=== PATIENT | male | born 1970 | race Caucasian/White ===

== ENCOUNTER 2020-05-18 22:51 | Inpatient (IN) | payer OTHER, SELFPAY ==
[2020-05-18 22:59] VITALS: BP 142/104; PULSE 136; RESP 20; TEMP 39.2; O2SAT 95; BMI 35.8
[2020-05-19] VITALS (21 sets, daily range): BP systolic 119–148; BP diastolic 77–105; PULSE 80–120; RESP 18–26; TEMP 36.3–39.6; O2SAT 94–98
--- NOTE | 2020-05-19 | PC.NURSE ---
LABS DRAWN AND SENT FOR ANALYSIS. AWAITING RESULTS. 18G IV ACCESS ESTABLISHED IN LEFT FOREARM.
[2020-05-19 00:09] LABS: MANUAL DIFF FLAG NO
[2020-05-19 00:14] LABS: Eosinophils Percent Auto 0.2 % (0-4); Hematocrit 49.7 % (42-52); Hemoglobin 16.7 g/dl (14.0-18.0); Imm Gran Abs Auto 0.01 X10*3/uL (0.00-0.03); Imm Gran Pct Auto 0.2 % (0.0-0.4); Lymphocytes Absolute Auto 1.3 X10*3/uL (1.2-4.9); Lymphocytes Percent Auto 19.9 % (20-40); Mean Corpuscular HGB Conc 33.6 g/dl (31.0-36.0); Mean Corpuscular Volume 83.2 fL (80-98); Mean Platelet Volume 9.7 fL (9.4-12.4); Monocytes Absolute Auto 0.4 X10*3/uL (0.1-1.2); Monocytes Percent Auto 6.5 % (2-11); Neutrophils Absolute Auto 4.9 X10*3/uL (2.0-8.3); Neutrophils Percent Auto 73.2 % (45-73); Platelet Count 160 X10*3/uL (160-400); Red Blood Count 5.97 X10*6/uL (4.60-5.80); Red Cell Distribution Width 13.8 % (11.0-16.0); White Blood Count 6.6 X10*3/uL (4.8-10.8)
[2020-05-19 00:16] LABS: INTERNATIONAL NORM RATIO 1.1 (0.9-1.1); Prothrombin Time 12.9 SEC (10.8-13.0)
[2020-05-19 00:19] LABS: D Dimer 532 NG/ML; Partial Thromboplastin Time 27.3 SEC (24.1-38.0)
[2020-05-19 00:27] LABS: Lactic Acid 1.6 mmol/L (0.5-2.0)
[2020-05-19 00:30] LABS: Alanine Aminotransferase 61 U/L (0-40); Alkaline Phosphatase 76 U/L (39-117); Anion Gap 14 (12-20); Aspartate Amino Transferase 36 U/L (5-37); Bilirubin Total 0.5 mg/dL (0.0-1.0); Blood Urea Nitrogen 17 mg/dL (9-16); Calcium 8.7 mg/dL (8.4-10.2); Carbon Dioxide 23 mmol/L (22-29); Chloride 105 mmol/L (96-108); Creatinine Clr Calc Pharmacy 100.2; Estimated Glomerular Filt Rate > 60; Glucose Random 155 mg/dL (60-115); Lactate Dehydrogenase 257 U/L (118-273); Potassium 4.1 mmol/l (3.3-5.1); Sodium 138 mmol/L (135-145); Total Protein 7.7 g/dL (6.5-8.0)
[2020-05-19] MEDS: Acetaminophen 325 MG TABLET 650 MG PO ×2 (00:31→08:30)
[2020-05-19] MEDS: Albuterol Sulfate 90 MCG 8 GM INHALER 4 PUFF INHALE (00:31)
[2020-05-19] MEDS: guaiFEN/Codeine SF 200/20/10ML 10 ML LIQUID PO (00:31)
[2020-05-19] MEDS: 0.9 % Sodium Chloride 1,000 ML 999 ML IVCONT (00:32)
[2020-05-19 00:48] LABS: Procalcitonin 0.16 ng/mL
[2020-05-19 00:50] LABS: Ferritin 402 ng/mL (20-250)
--- NOTE | 2020-05-19 00:54 | CT_ITS ---
EXAMINATION: CT PULMONARY EMBOLISM STUDY CLINICAL INFORMATION: Elevated d-dimer. Positive Covid. Fever, shortness of breath. COMPARISON: None. TECHNIQUE: Contiguous helical images of the chest were obtained following the administration of IV contrast. Multiplanar reconstructions were performed. MIPS were obtained and reviewed. DLP: 316 mGy-cm. CONTRAST: 65 mL of Omnipaque 350 were administered without incident. Please note that evaluation for a pulmonary embolism is significantly limited due to the poor timing of the contrast bolus. FINDINGS: The heart is of normal size. There is no pericardial effusion. The contrast bolus is poorly timed. As such, evaluation for a pulmonary embolism is limited; however, none is identified. There are no chest wall masses. Review of lung windows demonstrates that there are neither pleural effusions nor pneumothoraces. There is multifocal ground glass opacification within both lower lobes as well as the inferior segment of the lingula. There are no pulmonary parenchymal nodules. Limited evaluation of the upper abdomen demonstrates that the liver is of normal size and attenuation without focal lesions. Normal adrenal glands are identified. CT/CT angio chest PE protocol IMPRESSION: Limited examination as stated above. However, no pulmonary embolism is demonstrable. Multifocal airspace opacification. The appearance is nonspecific, though infection is to be considered. Automated exposure control (Care Dose) Adjustment of the mA and/or kv according to patient size (this includes techniques or standardized protocols for targeted exams where dose is matched to indication / reason for exam; i.e. extremities or head).
--- NOTE | 2020-05-19 01:19 | ED_ITS ---
HPI - URI/Sore Throat General Chief Complaint: Upper Respiratory Symptoms Stated Complaint: cough/sob/fever/covid + Time Seen by Provider: 05/18/20 22:57 Source: patient Mode of arrival: ambulatory Limitations: no limitations History of Present Illness HPI Narrative: patient presents to ED for shortness of breath and weakness started today. Patient states this is a 7 day with the COVID virus. Patient states his also tested positive for COVID-19 virus. Patient states consistent coughing no relief. Patient states fever, chills, and body aches. MD elicited complaint: fever and cough Related Data Allergies Allergy/AdvReac Type Severity Reaction Status Date / Time Penicillins [PENICILLINS] Allergy Mild HIVES Verified 05/19/20 00:48 Review of Systems Review of Systems: Yes all other systems are reviewed and are negative Constitutional: Constitutional: Reports as per HPI, Reports no additional constitutional complaints, Reports body ache(s), Reports chills and Reports fever(s) Eyes: Eyes: Reports as per HPI, Reports no additional eye complaints, Denies blurry vision, Denies exophthalmos, Denies change in vision, Denies decreased night vision, Denies itchy eyes, Denies loss of peripheral vision, Denies loss of vision and Denies other visual disturbances ENT: Reports system reviewed and no additional complaints, except as documented and Reports as per HPI Cardiovascular: Cardiovascular: Reports as per HPI, Reports no additional cardiovascular complaints and Reports dyspnea Respiratory: Respiratory: Reports cough, Reports excessive phlegm production, Denies pain on inspiration, Reports pain with cough and Reports dyspnea Gastrointestinal: Gastrointestinal: Reports as per HPI and Reports no additional gastrointestinal complaints Musculoskeletal: Musculoskeletal: Reports no additional musculoskeletal complaints and Reports as per HPI Neurologic: Reports system reviewed and no additional complaints, except as documented, Reports as per HPI and Denies loss of vision Psychiatric: Psychiatric: Reports no additional psychiatric complaints and Reports as per HPI Allergic/Immunologic: Allergic/Immunologic: Denies itchy eyes PMFSH Past Medical History Medical History (Updated 05/19/20 @ 02:13 by EILAS Robles) Asthma Hypertension No known health problems Social History Social History Advance Directives: No Advance Directives Information Provided: No Physical Exam Vital Signs: Vital Signs: Last Vital Signs Temp 102.5 F H 05/18/20 22:59 Pulse 136 H 05/18/20 22:59 Resp 20 05/18/20 22:59 BP 142/104 H 05/18/20 22:59 Pulse Ox 95 05/18/20 22:59 Body Mass Index 35.8 Const: General: alert, awake, Physically active and acute distress HENMT: Head: Yes normal to inspection Eyes: General: appearance normal, both eyes and all related structures Visual Villanueva: normal visual villanueva by confrontation Neck: Neck: Yes normal visual inspection, Yes full ROM, Yes no lympha denopathy, Yes no meningeal signs and Yes trachea midline Chest: Chest palpation & inspection: normal inspection of the chest, normal palpation of entire chest wall and no localized rib tenderness Resp: Effort & Inspection: normal respiratory effort and able to speak in complete sentences Auscultation: clear to auscultation bilaterally, no crackles, no rales, no rhonchi and no wheezes Cardio: Jugular venous distension: no JVD Heart sounds: S1 normal heart sound present and S2 normal heart sound present GI: Inspection: Yes normal to inspection and No abdominal wall ecchymosis Palpation (GI): Soft to palpation, not firm, nontender, no guarding and not rigid : General: No CVA tenderness and Yes no CVA tenderness Back/Spine/Pelvis: Back: no CVA tenderness, No CVA tenderness and No back tenderness Skin: General skin exam: no rashes or lesions noted Neuro: General: gait normal, no meningeal signs and CN's II-XI intact bilaterally Cranial nerves: Yes CN's II-XII intact bilaterally Extrem: General: Yes normal to inspection and Yes full ROM Psych: Appearance: grossly normal, well kempt and not disheveled Course Course Course Narrative: patient has known COVID and will have lab work and IV fluids given. Patient also given Tylenol. Reevaluation(s) Reevaluation #1: Patient does not have elevated white count, but does have elevated D-dimer and ferritin. Patient will be sent for chest CT to rule out PE. On ambulation O2 saturation remained above 95%, but patient was tachycardic up to 148. Patient states he does not feel well. Patient given IV fluids. Lactic acid negative. This is a viral syndrome due to COVID-19. Antibiotics not indicated for COVID. Not septic. awaiting CT results. Patient given albuterol inhaler. Time: 01:32 Reevaluation #2: hospitalist made aware of case and will come down evaluate patient. Presently no indication for dexamethasone on magnesium. Patient O2 sat above 95%. Patient states are cardiac. Patient given fluids. Patient is not having bacterial. sepsis. Time: 01:50 Reevaluation #3: patient is admitted to the hospital for COVID-[address] pending MDM - URI/Sore Throat MDM Narrative Medical decision making narrative: COVID 19 virus. Lab Data Result diagrams: 05/18/20 23:57 05/18/20 23:57 Labs: Lab Results 05/18/20 05/18/20 05/18/20 Range/Units 23:57 23:57 23:57 WBC 6.6 (4.8-10.8) X10*3/uL RBC 5.97 H (4.60-5.80) X10*6/uL Hgb 16.7 (14.0-18.0) g/dl Hct 49.7 (42-52) % MCV 83.2 (80-98) fL MCH 28.0 (27.0-33.0) pg MCHC 33.6 (31.0-36.0) g/dl RDW 13.8 (11.0-16.0) % Plt Count 160 (160-400) X10*3/uL MPV 9.7 (9.4-12.4) fL Immature Gran % (Auto) 0.2 (0.0-0.4) % Neut % (Auto) 73.2 H (45-73) % Lymph % (Auto) 19.9 L (20-40) % [place] % (Auto) 6.5 (2-11) % Eos % (Auto) 0.2 (0-4) % Baso % (Auto) 0.0 (0-2) % Lymph # (Auto) 1.3 (1.2-4.9) X10*3/uL [place] # (Auto) 0.4 (0.1-1.2) X10*3/uL Eos # (Auto) 0.0 (0.0-0.4) X10*3/uL Baso # (Auto) 0.0 (0.0-0.2) X10*3/uL Abs Immat Gran (auto) 0.01 (0.00-0.03) X10*3/uL Absolute Neuts (auto) 4.9 (2.0-8.3) X10*3/uL Absolute Nucleated RBC 0.000 (0.0-0.012) X10*3/uL Nucleated RBC % (auto) 0.0 (0.0-0.2) /100WBC PT 12.9 (10.8-13.0) SEC INR 1.1 (0.9-1.1) APTT 27.3 (24.1-38.0) SEC D-Dimer 532 NG/ML Sodium 138 (135-145) mmol/L Potassium 4.1 (3.3-5.1) mmol/l Chloride 105 (96-108) mmol/L Carbon Dioxide 23 (22-29) mmol/L Anion Gap 14 (12-20) BUN 17 H (9-16) mg/dL Creatinine 1.09 (0.5-1.4) mg/dL Estim Creat Clear Calc 100.2 Estimated GFR > 60 Random Glucose 155 H (60-115) mg/dL Lactic Acid (0.5-2.0) mmol/L Calcium 8.7 (8.4-10.2) mg/dL Ferritin 402 H (20-250) ng/mL Total Bilirubin 0.5 (0.0-1.0) mg/dL AST 36 (5-37) U/L ALT 61 H (0-40) U/L Alkaline Phosphatase 76 (39-117) U/L Lactate Dehydrogenase 257 (118-273) U/L Total Protein 7.7 (6.5-8.0) g/dL Albumin 4.0 (3.5-5.0) g/dL Procalcitonin ng/mL 05/18/20 05/18/20 Range/Units 23:57 23:57 WBC (4.8-10.8) X10*3/uL RBC (4.60-5.80) X10*6/uL Hgb (14.0-18.0) g/dl Hct (42-52) % MCV (80-98) fL MCH (27.0-33.0) pg MCHC (31.0-36.0) g/dl RDW (11.0-16.0) % Plt Count (160-400) X10*3/uL MPV (9.4-12.4) fL Immature Gran % (Auto) (0.0-0.4) % Neut % (Auto) (45-73) % Lymph % (Auto) (20-40) % [place] % (Auto) (2-11) % Eos % (Auto) (0-4) % Baso % (Auto) (0-2) % Lymph # (Auto) (1.2-4.9) X10*3/uL [place] # (Auto) (0.1-1.2) X10*3/uL Eos # (Auto) (0.0-0.4) X10*3/uL Baso # (Auto) (0.0-0.2) X10*3/uL Abs Immat Gran (auto) (0.00-0.03) X10*3/uL Absolute Neuts (auto) (2.0-8.3) X10*3/uL Absolute Nucleated RBC (0.0-0.012) X10*3/uL Nucleated RBC % (auto) (0.0-0.2) /100WBC PT (10.8-13.0) SEC INR (0.9-1.1) APTT (24.1-38.0) SEC D-Dimer NG/ML Sodium (135-145) mmol/L Potassium (3.3-5.1) mmol/l Chloride (96-108) mmol/L Carbon Dioxide (22-29) mmol/L Anion Gap (12-20) BUN (9-16) mg/dL Creatinine (0.5-1.4) mg/dL Estim Creat Clear Calc Estimated GFR Random Glucose (60-115) mg/dL Lactic Acid 1.6 (0.5-2.0) mmol/L Calcium (8.4-10.2) mg/dL Ferritin (20-250) ng/mL Total Bilirubin (0.0-1.0) mg/dL AST (5-37) U/L ALT (0-40) U/L Alkaline Phosphatase (39-117) U/L Lactate Dehydrogenase (118-273) U/L Total Protein (6.5-8.0) g/dL Albumin (3.5-5.0) g/dL Procalcitonin 0.16 ng/mL Discharge Plan Discharge Clinical Impression: COVID-19 Patient Disposition: Admitted As Inpatient
[2020-05-19] MEDS: iohexoL 350 MG/ML 100 ML INFUS..BTL 65 ML IV (01:49)
--- NOTE | 2020-05-19 03:24 | P.HPHOSP_ITS ---
History of Present Illness Date of Service: 05/19/20 Chief Complaint: sob this is a 49-year-old male with a past medical history of hypertension,asthma and recently diagnosed COVID-19 who presents to the hospital with complaints of shortness of breath and generally feeling ill. Patient reports that about a week ago he started having a runny nose, he went to urgent care because he has underlying asthma and was worried. Patient was tested for COVID and history test results was positive. Patient reports that he isolated himself but over the past 2 days he started feeling significantly worse with shortness of breath to the point where he could not catch his breath, cough, and fever of up to 103. He also has diarrhea, chest pain from coughing, he reports he has been eating well drinking enough liquids. He has some spotty headache, no change in vision, no nausea or vomiting, no urinary symptoms and no lower extremity edema. On arrival to the ED patient has a temp of 102.5?, heart rate of 136 all other vitals within normal limits chest CT angiogram shows multifocal airspace opacification with no PE past medical history: Hypertension, asthma Surgical history: Denies Family history: heart attack in father at the age of 51, heart attack in brother at the age of 47 social history: Denies tobacco use, drinks alcohol on weekends only, last drink 2 weeks ago, denies using any drugs Review of Systems Review of Systems: Yes all other systems are reviewed and are negative Eyes: Eyes: Denies loss of vision Neurologic: Reports system reviewed and no additional complaints, except as documented, Reports as per HPI and Denies loss of vision [facility] Medical History Asthma Hypertension No known health problems Social History Advance Directives: No Advance Directives Information Provided: No Meds Allergies Allergy/AdvReac Type Severity Reaction Status Date / Time Penicillins [PENICILLINS] Allergy Mild HIVES Verified 05/19/20 00:48 Physical Exam Vital Signs and Narrative: Vital Signs: Last Vital Signs Temp 102.5 F H 05/18/20 22:59 Pulse 136 H 05/18/20 22:59 Resp 20 05/18/20 22:59 BP 142/104 H 05/18/20 22:59 Pulse Ox 95 05/18/20 22:59 Body Mass Index 35.8 Const: General: cooperative, no acute distress and ill appearing Orientation/consciousness: patient oriented x3 Eyes: General: appearance normal, both eyes and all related structures Pupils: Equal, round and reactive pupils present Resp: Effort & Inspection: Actively coughing and labored Auscultation: rhonchi Cardio: Rate: regular rate Rhythm: regular rhythm GI: Palpation (GI): Soft to palpation Auscultation: normal bowel sounds Skin: General skin exam: no rashes or lesions noted Neuro: General: patient oriented x3 Cranial nerves: Yes Equal, round and reactive pupils present Cognition (Neuro): normal cognition Extrem: General: Yes normal to inspection and Yes no pedal edema Results Labs CBC and Chem 7: 05/18/20 23:57 05/18/20 23:57 Labs: Laboratory Results - last 24 hr 05/18/20 05/18/20 05/18/20 23:57 23:57 23:57 MCV 83.2 MCH 28.0 MCHC 33.6 RDW 13.8 Plt Count 160 MPV 9.7 Immature Gran % (Auto) 0.2 Neut % (Auto) 73.2 H Lymph % (Auto) 19.9 L [place] % (Auto) 6.5 Eos % (Auto) 0.2 Baso % (Auto) 0.0 Lymph # (Auto) 1.3 [place] # (Auto) 0.4 Eos # (Auto) 0.0 Baso # (Auto) 0.0 Abs Immat Gran (auto) 0.01 Absolute Neuts (auto) 4.9 Absolute Nucleated RBC 0.000 Nucleated RBC % (auto) 0.0 PT 12.9 INR 1.1 APTT 27.3 D-Dimer 532 Anion Gap 14 Estim Creat Clear Calc 100.2 Estimated GFR > 60 Random Glucose 155 H Lactic Acid Calcium 8.7 Ferritin 402 H Total Bilirubin 0.5 AST 36 ALT 61 H Alkaline Phosphatase 76 Lactate Dehydrogenase 257 Total Protein 7.7 Albumin 4.0 Procalcitonin 05/18/20 05/18/20 23:57 23:57 MCV MCH MCHC RDW Plt Count MPV Immature Gran % (Auto) Neut % (Auto) Lymph % (Auto) [place] % (Auto) Eos % (Auto) Baso % (Auto) Lymph # (Auto) [place] # (Auto) Eos # (Auto) Baso # (Auto) Abs Immat Gran (auto) Absolute Neuts (auto) Absolute Nucleated RBC Nucleated RBC % (auto) PT INR APTT D-Dimer Anion Gap Estim Creat Clear Calc Estimated GFR Random Glucose Lactic Acid 1.6 Calcium Ferritin Total Bilirubin AST ALT Alkaline Phosphatase Lactate Dehydrogenase Total Protein Albumin Procalcitonin 0.16 Imaging Radiologist's Impressions: Impressions Chest CTA 05/19/20 00:54 IMPRESSION: Limited examination as stated above. However, no pulmonary embolism is demonstrable. Multifocal airspace opacification. The appearance is nonspecific, though infection is to be considered. Automated exposure control (Care Dose) Adjustment of the mA and/or kv according to patient size (this includes techniques or standardized protocols for targeted exams where dose is matched to indication / reason for exam; i.e. extremities or head). Assessment and Plan (1) Pneumonia due to COVID-19 virus: Status: Acute (2) Dyspnea: Status: Acute (3) Asthma: Status: Acute (4) Hypertension: Status: Acute this is a 49-year-old male with past medical history of asthma and hypertension who presents with shortness of breath. Patient is COVID19 19 positive about a week ago. # COVID-19 pneumonia - multifocal opacities on CT, COVID-19 positive, tachycardic, febrile plan: - Not requiring any supplemental oxygen at this time, satting 95% on ambulation, - will monitor respiratory status - oxygen supplement for comfort - if starts requiring oxygen and no worsens clinically can consider Decadron/ remdesivir # dyspnea - secondary to above - satting 95% on room air - will monitor respiratory status, O2 supplement for comfort # asthma - no wheezing - shortness of breath most likely secondary to the pneumonia Plan: - Bentyl in p.r.n. # hypertension - stable - does not taking medication the home DVT prophylaxis: Lovenox
--- NOTE | 2020-05-19 03:42 | PC.NURSE ---
PATIENT RESTING COMFORTABLY AT THIS TIME, AWAITING BED ASSIGNMENT.
--- NOTE | 2020-05-19 08:55 | PC.NURSE ---
No cardiac monitoring needed at this time
[2020-05-19 09:26] LABS: SARS COV2 PCR INHOUSE POSITIVE (Negative)
[2020-05-19] MEDS: carvediloL 6.25 MG TABLET PO (10:20)
[2020-05-19] MEDS: dexAMETHasone sod phosphate 4 MG/ML VIAL 6 MG IVPUSH (10:20)
[2020-05-19] MEDS: Enoxaparin Sodium 40 MG/0.4 ML SYRINGE SUBCUT (10:20)
[2020-05-19] MEDS: 0.9 % Sodium Chloride Flush 3 ML SYRINGE IVFLUSH ×2 (10:21→15:53)
[2020-05-19] MEDS: amLODIPine Besylate 10 MG TABLET PO (10:21)
[2020-05-19] MEDS: Ibuprofen 400 MG TABLET PO (10:40)
[2020-05-19] MEDS: guaiFENesin DM 100/10/5 ML 5 ML SYRUP PO (19:59)
[2020-05-20] VITALS (7 sets, daily range): BP systolic 122–170; BP diastolic 67–95; PULSE 80–94; RESP 18–20; TEMP 36.4–38.8; O2SAT 95–96; BMI 35.8
[2020-05-20] MEDS: 0.9 % Sodium Chloride Flush 3 ML SYRINGE IVFLUSH ×2 (00:45→08:58)
[2020-05-20] MEDS: Acetaminophen 325 MG TABLET 650 MG PO (03:53)
[2020-05-20] MEDS: guaiFENesin DM 100/10/5 ML 5 ML SYRUP PO (03:54)
[2020-05-20] MEDS: diphenhydrAMINE HCL 50 MG/ML VIAL 25 MG IVPUSH (04:34)
[2020-05-20 06:13] LABS: MANUAL DIFF FLAG NO
[2020-05-20 06:19] LABS: Hematocrit 49.4 % (42-52); Hemoglobin 16.6 g/dl (14.0-18.0); Imm Gran Abs Auto 0.07 X10*3/uL (0.00-0.03); Imm Gran Pct Auto 0.7 % (0.0-0.4); Lymphocytes Absolute Auto 1.6 X10*3/uL (1.2-4.9); Mean Corpuscular HGB Conc 33.6 g/dl (31.0-36.0); Mean Corpuscular Hemoglobin 27.9 pg (27.0-33.0); Mean Corpuscular Volume 82.9 fL (80-98); Monocytes Absolute Auto 0.6 X10*3/uL (0.1-1.2); Monocytes Percent Auto 5.3 % (2-11); Neutrophils Absolute Auto 8.2 X10*3/uL (2.0-8.3); Platelet Count 191 X10*3/uL (160-400); Red Blood Count 5.96 X10*6/uL (4.60-5.80); Red Cell Distribution Width 13.9 % (11.0-16.0); White Blood Count 10.4 X10*3/uL (4.8-10.8)
[2020-05-20 07:01] LABS: Anion Gap 14 (12-20); Blood Urea Nitrogen 16 mg/dL (9-16); Calcium 8.6 mg/dL (8.4-10.2); Carbon Dioxide 24 mmol/L (22-29); Chloride 102 mmol/L (96-108); Creatinine Clr Calc Pharmacy 133.2; Estimated Glomerular Filt Rate > 60; Glucose Random 104 mg/dL (60-115); Potassium 4.1 mmol/l (3.3-5.1); Sodium 136 mmol/L (135-145)
[2020-05-20] MEDS: dexAMETHasone sod phosphate 4 MG/ML VIAL 6 MG IVPUSH (08:57)
[2020-05-20] MEDS: amLODIPine Besylate 10 MG TABLET PO (08:57)
[2020-05-20] MEDS: carvediloL 6.25 MG TABLET PO (08:57)
[2020-05-20] MEDS: Enoxaparin Sodium 40 MG/0.4 ML SYRINGE SUBCUT (08:58)
--- NOTE | 2020-05-20 10:56 | HO.PM.IMPN ---
Subjective Subjective Date of Service: 05/20/20 Interval History: sob, about the same as yesterday Cardiovascular Cardiovascular: Reports no additional cardiovascular complaints Gastrointestinal Gastrointestinal: Reports no additional gastrointestinal complaints Physical Exam Vital Signs: Vital Signs: Last Vital Signs Temp 98.8 F 05/20/20 08:00 Pulse 94 05/20/20 08:00 Resp 20 05/20/20 08:00 BP 132/95 H 05/20/20 08:00 Pulse Ox 96 05/20/20 08:00 Body Mass Index 35.8 General: AO X 3, no acute distress Resp: bilateral rales CVS: S1,S2,RRR GI: soft, non tender, non distended Neuro: motor grossly intact Psych: appropriate affect Objective Data Current Medications Generic Name Dose Route Start Last Admin Trade Name Freq PRN Reason Stop Dose Admin Acetaminophen 650 mg 05/19/20 08:57 05/20/20 03:53 Acetaminophen 325 Mg Tablet PO 650 mg Q6H PRN Administration Pain, Mild (Pain Scale 1-3) Albuterol Sulfate 4 puff 05/19/20 08:57 Albuterol Sulfate 90 Mcg 8 Gm Inhaler INHALE Q2H PRN Shortness of Breath/Wheezing Amlodipine Besylate 10 mg 05/19/20 09:00 05/20/20 08:57 Amlodipine Besylate 10 Mg Tablet PO 10 mg DAILY KIERRA Administration Protocol Carvedilol 6.25 mg 05/19/20 09:00 05/20/20 08:57 Carvedilol 6.25 Mg Tablet PO 6.25 mg DAILY KIERRA Administration Protocol Dexamethasone Sodium Phosphate 6 mg 05/19/20 10:00 05/20/20 08:57 Dexamethasone Sod Phosphate 4 Mg/Ml Vial IVPUSH 6 mg DAILY KIERRA Administration Docusate Sodium 100 mg 05/19/20 08:57 Docusate Sodium 100 Mg Capsule PO DAILY PRN Constipation Enoxaparin Sodium 40 mg 05/19/20 08:57 05/20/20 08:58 Enoxaparin Sodium 40 Mg/0.4 Ml Syringe SUBCUT 40 mg Q24H KIERRA Administration Guaifenesin/Dextromethorphan 5 ml 05/19/20 19:39 05/20/20 03:54 Guaifenesin Dm 100/10/5 Ml 5 Ml Syrup PO 5 ml Q6H PRN Administration Cough Ibuprofen 400 mg 05/19/20 10:08 05/19/20 10:40 Ibuprofen 400 Mg Tablet PO 400 mg Q6H PRN Administration fever, pain Pharmacy Consult 1 each 05/19/20 06:37 Consult Rx Perform Med Rec MISCELLANE ONCE PRN Consult order Sodium Chloride 3 ml 05/19/20 08:57 05/20/20 08:58 0.9 % Sodium Chloride Flush 3 Ml Syringe IVFLUSH 3 ml QSHIFT KIERRA Administration Labs CBC & Chem 7: 05/20/20 05:43 05/20/20 05:43 Microbiology Microbiology Results: Microbiology 05/19/20 00:30 Blood - Venous Blood Culture - Preliminary No growth after 24 hours. 05/19/20 00:28 Blood - Venous Blood Culture - Preliminary No growth after 24 hours. Assessment and Plan (1) Pneumonia due to COVID-19 virus: Status: Acute (2) Dyspnea: Status: Acute (3) Asthma: Status: Acute (4) Hypertension: Status: Acute Assessment and Plan: 49M presented with sob, fever viral sepsis poa due to covid pneumonia complicated by asthma exacerbation continue decadron day2 monitor prognostic labs
--- NOTE | 2020-05-20 13:40 | MHC.CM.PN ---
CM met with patient who reports he is independent and lives with his , son and mom-in-law. 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 Patient declines completing HCP after education. Patient has his own car in the lot and will drive himself home upon discharge. Discussed discharge plan, home no services. CM will continue to follow patient for discharge needs.
[2020-05-21] VITALS (9 sets, daily range): BP systolic 123–140; BP diastolic 74–89; PULSE 62–94; RESP 18–20; TEMP 35.8–37.2; O2SAT 93–98
[2020-05-21] MEDS: 0.9 % Sodium Chloride Flush 3 ML SYRINGE IVFLUSH ×4 (00:35→22:39)
[2020-05-21 06:58] LABS: MANUAL DIFF FLAG NO
[2020-05-21 07:11] LABS: Hematocrit 49.1 % (42-52); Hemoglobin 16.1 g/dl (14.0-18.0); Imm Gran Abs Auto 0.05 X10*3/uL (0.00-0.03); Imm Gran Pct Auto 0.6 % (0.0-0.4); Lymphocytes Absolute Auto 1.5 X10*3/uL (1.2-4.9); Lymphocytes Percent Auto 17.6 % (20-40); Mean Corpuscular HGB Conc 32.8 g/dl (31.0-36.0); Mean Corpuscular Hemoglobin 27.7 pg (27.0-33.0); Mean Corpuscular Volume 84.4 fL (80-98); Mean Platelet Volume 10.2 fL (9.4-12.4); Monocytes Absolute Auto 0.5 X10*3/uL (0.1-1.2); Monocytes Percent Auto 5.6 % (2-11); Neutrophils Absolute Auto 6.3 X10*3/uL (2.0-8.3); Neutrophils Percent Auto 76.2 % (45-73); Platelet Count 199 X10*3/uL (160-400); Red Blood Count 5.82 X10*6/uL (4.60-5.80); White Blood Count 8.3 X10*3/uL (4.8-10.8)
[2020-05-21 07:19] LABS: D Dimer 572 NG/ML
[2020-05-21 07:46] LABS: Anion Gap 14 (12-20); Blood Urea Nitrogen 18 mg/dL (9-16); Calcium 8.7 mg/dL (8.4-10.2); Carbon Dioxide 29 mmol/L (22-29); Chloride 102 mmol/L (96-108); Estimated Glomerular Filt Rate > 60; Glucose Fasting 113 mg/dL (60-99); Potassium 4.4 mmol/l (3.3-5.1); Sodium 141 mmol/L (135-145)
[2020-05-21] MEDS: Enoxaparin Sodium 40 MG/0.4 ML SYRINGE SUBCUT (08:33)
[2020-05-21] MEDS: dexAMETHasone sod phosphate 4 MG/ML VIAL 6 MG IVPUSH (08:33)
[2020-05-21] MEDS: carvediloL 6.25 MG TABLET PO (08:34)
[2020-05-21] MEDS: amLODIPine Besylate 10 MG TABLET PO (08:34)
--- NOTE | 2020-05-21 10:19 | HO.PM.IMPN ---
Subjective Subjective Date of Service: 05/21/20 Interval History: about the same as yesterday, chest pain on coughing Cardiovascular Cardiovascular: Reports no additional cardiovascular complaints Gastrointestinal Gastrointestinal: Reports no additional gastrointestinal complaints Physical Exam Vital Signs: Vital Signs: Last Vital Signs Temp 97.9 F 05/21/20 08:00 Pulse 86 05/21/20 08:34 Resp 20 05/21/20 08:00 BP 124/89 05/21/20 08:34 Pulse Ox 98 05/21/20 08:56 Body Mass Index 35.8 General: AO X 3, no acute distress Resp: bilateral rales CVS: S1,S2,RRR GI: soft, non tender, non distended Neuro: motor grossly intact Psych: appropriate affect Objective Data Current Medications Generic Name Dose Route Start Last Admin Trade Name Freq PRN Reason Stop Dose Admin Acetaminophen 650 mg 05/19/20 08:57 05/20/20 03:53 Acetaminophen 325 Mg Tablet PO 650 mg Q6H PRN Administration Pain, Mild (Pain Scale 1-3) Albuterol Sulfate 4 puff 05/19/20 08:57 Albuterol Sulfate 90 Mcg 8 Gm Inhaler INHALE Q2H PRN Shortness of Breath/Wheezing Amlodipine Besylate 10 mg 05/19/20 09:00 05/21/20 08:34 Amlodipine Besylate 10 Mg Tablet PO 10 mg DAILY KIERRA Administration Protocol Carvedilol 6.25 mg 05/19/20 09:00 05/21/20 08:34 Carvedilol 6.25 Mg Tablet PO 6.25 mg DAILY KIERRA Administration Protocol Dexamethasone Sodium Phosphate 6 mg 05/19/20 10:00 05/21/20 08:33 Dexamethasone Sod Phosphate 4 Mg/Ml Vial IVPUSH 6 mg DAILY KIERRA Administration Docusate Sodium 100 mg 05/19/20 08:57 Docusate Sodium 100 Mg Capsule PO DAILY PRN Constipation Enoxaparin Sodium 40 mg 05/19/20 08:57 05/21/20 08:33 Enoxaparin Sodium 40 Mg/0.4 Ml Syringe SUBCUT 40 mg Q24H KIERRA Administration Guaifenesin/Dextromethorphan 5 ml 05/19/20 19:39 05/20/20 03:54 Guaifenesin Dm 100/10/5 Ml 5 Ml Syrup PO 5 ml Q6H PRN Administration Cough Ibuprofen 400 mg 05/19/20 10:08 05/19/20 10:40 Ibuprofen 400 Mg Tablet PO 400 mg Q6H PRN Administration fever, pain Pharmacy Consult 1 each 05/19/20 06:37 Consult Rx Perform Med Rec MISCELLANE ONCE PRN Consult order Sodium Chloride 3 ml 05/19/20 08:57 05/21/20 08:34 0.9 % Sodium Chloride Flush 3 Ml Syringe IVFLUSH 3 ml QSHIFT KIERRA Administration Labs CBC & Chem 7: 05/21/20 05:59 05/21/20 05:59 Microbiology Microbiology Results: Microbiology 05/19/20 00:30 Blood - Venous Blood Culture - Preliminary No growth after 48 hours. 05/19/20 00:28 Blood - Venous Blood Culture - Preliminary No growth after 48 hours. Assessment and Plan (1) Pneumonia due to COVID-19 virus: Status: Acute (2) Dyspnea: Status: Acute (3) Asthma: Status: Acute (4) Hypertension: Status: Acute Assessment and Plan: 49M presented with sob, fever viral sepsis poa due to covid pneumonia complicated by asthma exacerbation continue decadron day3 monitor for fevers and dyspnea, if afebril and improved possible dc in 24 hours
[2020-05-21] MEDS: Ibuprofen 400 MG TABLET PO (14:37)
[2020-05-21] MEDS: guaiFENesin DM 100/10/5 ML 5 ML SYRUP PO ×2 (16:24→22:39)
[2020-05-21] MEDS: Acetaminophen 325 MG TABLET 650 MG PO (16:25)
[2020-05-22 00:09] VITALS: BP 143/98; PULSE 64; RESP 18; TEMP 36.6; O2SAT 94
[2020-05-22 03:47] VITALS: BP 142/74; PULSE 43; RESP 18; TEMP 36.6; O2SAT 95
[2020-05-22 07:22] VITALS: BP 118/77; PULSE 71; RESP 18; TEMP 36.8; O2SAT 94
[2020-05-22] MEDS: 0.9 % Sodium Chloride Flush 3 ML SYRINGE IVFLUSH (09:12)
[2020-05-22] MEDS: Enoxaparin Sodium 40 MG/0.4 ML SYRINGE SUBCUT (09:12)
[2020-05-22 09:13] VITALS: BP 118/77; PULSE 71
[2020-05-22] MEDS: carvediloL 6.25 MG TABLET PO (09:13)
[2020-05-22] MEDS: dexAMETHasone sod phosphate 4 MG/ML VIAL 6 MG IVPUSH (09:13)
[2020-05-22] MEDS: amLODIPine Besylate 10 MG TABLET PO (09:13)
[2020-05-22] MEDS: guaiFENesin DM 100/10/5 ML 5 ML SYRUP PO (09:27)
--- NOTE | 2020-05-22 09:30 | PM.DS ---
DS: Providers Provider Date of admission: 05/19/20 03:24 Primary care physician: Unknown Physician DS: Diagnosis Discharge Diagnosis (1) Pneumonia due to COVID-19 virus: Status: Acute (2) Dyspnea: Status: Acute (3) Asthma: Status: Acute (4) Hypertension: Status: Acute DS: Medications Discharge Medications Home Medications: Home Medications Medication Instructions Recorded Confirmed amlodipine 10 mg PO DAILY 05/19/20 05/19/20 carvedilol 6.25 mg PO DAILY 05/19/20 05/19/20 Previous Rx's Medication Instructions Recorded dexamethasone [Decadron] 6 mg PO DAILY #7 tab 05/22/20 dextromethorphan-guaifenesin 5 ml PO Q6H PRN #1000 ml 05/22/20 hydrocodone-acetaminophen [Vicodin 1 tab PO Q6H PRN #14 tab 05/22/20 HP] DS: Summary Hospital Course Hospital Course: patient was admitted for pneumonia due to COVID-19. He was given Decadron. His symptoms significantly improved. He was able to ambulate without oxygen supplementation with minimal shortness of breath. He will be discharged home and continue on 7 more days of p.o. Decadron. He will remain in isolation until symptom-free 24 hours and at least 10 days from symptoms beginning. Time Spent with Patient Time attestation: Total time spent providing and/or coordinating discharge services: Physical Exam Vital Signs: Vital Signs: Last Vital Signs Temp 98.3 F 05/22/20 07:22 Pulse 71 05/22/20 09:13 Resp 18 05/22/20 07:22 BP 118/77 05/22/20 09:13 Pulse Ox 94 05/22/20 07:22 Body Mass Index 35.8 General: AO X 3, no acute distress Resp: CTA bilateral CVS: S1,S2,RRR GI: soft, non tender, non distended Neuro: motor grossly intact Psych: appropriate affect DS: Data Data Completed and Pending Labs on day of discharge: 05/18/20 23:22 0.9 % Sodium Chloride [Ns] 1,000 ml IVCONT 999 mls/hr 05/18/20 23:25 Acetaminophen [Tylenol] 650 mg PO ONCE ONE 05/18/20 23:57 Complete Blood Count Auto Diff Stat Comprehensive Met. Panel Stat D Dimer Stat Ferritin Stat Lactate Dehydrogenase Stat Lactic Acid Stat Partial Thromboplastin Time Stat Procalcitonin Stat Prothrombin Time INR Stat 05/19/20 00:15 Albuterol Sulfate [Ventolin] 4 puff INHALE ONCE [facility] guaiFEN/Codeine SF 200/20/10ML [Robitussin AC 200/20/10ML] 10 ml PO ONCE STA 05/19/20 00:54 CT angio chest PE protocol Stat 05/19/20 01:47 iohexoL 350 MG/ML [Omnipaque 350 MG/ML] 65 ml IV ONCE ONE 05/19/20 03:22 Transfer Order Routine 05/19/20 07:47 SARS COV2 PCR INHOUSE Stat 05/19/20 08:14 Acetaminophen [Tylenol] 650 mg PO ONCE ONE 05/19/20 Breakfast Regular Diet 05/20/20 04:19 diphenhydrAMINE HCL [Benadryl] 25 mg IVPUSH ONCE ONE 05/20/20 05:43 Basic Metabolic Panel Routine Complete Blood Count Auto Diff Routine 05/21/20 05:59 BMP [Basic Metabolic Panel Fasting] Routine Complete Blood Count Auto Diff Routine D Dimer Routine Laboratory Last Values WBC 8.3 X10*3/uL (4.8-10.8) 05/21/20 05:59 RBC 5.82 X10*6/uL (4.60-5.80) H 05/21/20 05:59 Hgb 16.1 g/dl (14.0-18.0) 05/21/20 05:59 Hct 49.1 % (42-52) 05/21/20 05:59 MCV 84.4 fL (80-98) 05/21/20 05:59 MCH 27.7 pg (27.0-33.0) 05/21/20 05:59 MCHC 32.8 g/dl (31.0-36.0) 05/21/20 05:59 RDW 14.0 % (11.0-16.0) 05/21/20 05:59 Plt Count 199 X10*3/uL (160-400) 05/21/20 05:59 MPV 10.2 fL (9.4-12.4) 05/21/20 05:59 Immature Gran % (Auto) 0.6 % (0.0-0.4) H 05/21/20 05:59 Neut % (Auto) 76.2 % (45-73) H 05/21/20 05:59 Lymph % (Auto) 17.6 % (20-40) L 05/21/20 05:59 [place] % (Auto) 5.6 % (2-11) 05/21/20 05:59 Eos % (Auto) 0.0 % (0-4) 05/21/20 05:59 Baso % (Auto) 0.0 % (0-2) 05/21/20 05:59 Lymph # (Auto) 1.5 X10*3/uL (1.2-4.9) 05/21/20 05:59 [place] # (Auto) 0.5 X10*3/uL (0.1-1.2) 05/21/20 05:59 Eos # (Auto) 0.0 X10*3/uL (0.0-0.4) 05/21/20 05:59 Baso # (Auto) 0.0 X10*3/uL (0.0-0.2) 05/21/20 05:59 Abs Immat Gran (auto) 0.05 X10*3/uL (0.00-0.03) H 05/21/20 05:59 Absolute Neuts (auto) 6.3 X10*3/uL (2.0-8.3) 05/21/20 05:59 Absolute Nucleated RBC 0.000 X10*3/uL (0.0-0.012) 05/21/20 05:59 Nucleated RBC % (auto) 0.0 /100WBC (0.0-0.2) 05/21/20 05:59 PT 12.9 SEC (10.8-13.0) 05/18/20 23:57 INR 1.1 (0.9-1.1) 05/18/20 23:57 APTT 27.3 SEC (24.1-38.0) 05/18/20 23:57 D-Dimer 572 NG/ML 05/21/20 05:59 Sodium 141 mmol/L (135-145) 05/21/20 05:59 Potassium 4.4 mmol/l (3.3-5.1) 05/21/20 05:59 Chloride 102 mmol/L (96-108) 05/21/20 05:59 Carbon Dioxide 29 mmol/L (22-29) 05/21/20 05:59 Anion Gap 14 (12-20) 05/21/20 05:59 BUN 18 mg/dL (9-16) H 05/21/20 05:59 Creatinine 0.91 mg/dL (0.5-1.4) 05/21/20 05:59 Estim Creat Clear Calc 120.0 05/21/20 05:59 Estimated GFR > 60 05/21/20 05:59 Random Glucose 104 mg/dL (60-115) 05/20/20 05:43 Fasting Glucose 113 mg/dL (60-99) H 05/21/20 05:59 Lactic Acid 1.6 mmol/L (0.5-2.0) 05/18/20 23:57 Calcium 8.7 mg/dL (8.4-10.2) 05/21/20 05:59 Ferritin 402 ng/mL (20-250) H 05/18/20 23:57 Total Bilirubin 0.5 mg/dL (0.0-1.0) 05/18/20 23:57 AST 36 U/L (5-37) 05/18/20 23:57 ALT 61 U/L (0-40) H 05/18/20 23:57 Alkaline Phosphatase 76 U/L (39-117) 05/18/20 23:57 Lactate Dehydrogenase 257 U/L (118-273) 05/18/20 23:57 Total Protein 7.7 g/dL (6.5-8.0) 05/18/20 23:57 Albumin 4.0 g/dL (3.5-5.0) 05/18/20 23:57 Procalcitonin 0.16 ng/mL 05/18/20 23:57 Coronavirus (PCR) POSITIVE (Negative) A 05/19/20 07:47 Preliminary micro results at discharge 05/19/20 00:30 Blood Culture - Preliminary Blood - Venous No growth after 48 hours. 05/19/20 00:28 Blood Culture - Preliminary Blood - Venous No growth after 48 hours. Discharge Plan Discharge Patient Disposition: Home, Self-Care Referrals: Physician,Unknown [Primary Care Provider] - Discharge Medications: New dextromethorphan-guaifenesin 10-100 mg/5 mL Syrup 5 ml PO Q6H PRN (Reason: Cough) Qty: 1000 RF: 0 dexamethasone [Decadron] 6 mg tablet 6 mg PO DAILY Qty: 7 RF: 0 hydrocodone-acetaminophen [Vicodin HP] 10-300 mg tablet 1 tab PO Q6H PRN (Reason: pain) Qty: 14 RF: 0 Continued carvedilol 6.25 mg Tablet 6.25 mg PO DAILY RF: 0 amlodipine 10 mg Tablet 10 mg PO DAILY RF: 0 Discharge Orders: Discharge Order (Routine); Ordered 05/22/20 Ordered By: Lefty Palacio Activity on Discharge: As tolerated Visit Report Forms: Patient Portal Discharge page Care Plan Goals: rec[facility] Health Concerns: covid Plan of Treatment: decadron, stay isolated until symptoms free 24 hours and atleast 10 days from beginning of symptoms
--- NOTE | 2020-05-22 09:36 | MHC.CM.PN ---
DC TODAY HOME WITH FAMILY SUPPORT. FAMILY TRANSPORT.
== END 2020-05-22 11:37 | disposition home or self-care (01) | DRG 177 ==
LOC: HO.ED 05-19 07:23 → HO.IMC 05-19 08:18
PROVIDERS: Emergency Medicine; Physician Assistant; Admitting Provider Internal Medicine; Emergency Provider Emergency Medicine Emergency Medical Services; Visit Provider Internal Medicine
DX: U07.1 COVID-19 (principal); J12.89 Other viral pneumonia; I10 Essential (primary) hypertension; Z88.0 Allergy status to penicillin; Z79.899 Other long term (current) drug therapy
CPT/HCPCS: 11104; 36415; 71275; 80048; 80053; 82728; 83605; 83615; 84145; 85025; 85379; 85610; 85730; 87040; 94640; 96360; 99285; J1100; J1200; J1650; Q9967; U0003

== ENCOUNTER 2020-05-27 06:51 | Outpatient (REF) | payer BC, SELFPAY | END 2020-05-27 06:52 | disposition home or self-care (01) | LOC: HO.LAB 06:51 | PROVIDERS: Visit Provider Internal Medicine | DX: Z20.828 Contact with and (suspected) exposure to other viral communicable diseases (principal) | CPT/HCPCS: C9803; U0003 ==

== ENCOUNTER 2020-06-05 08:11 | Outpatient (REF) | payer BC, SELFPAY | END 2020-06-05 08:12 | disposition home or self-care (01) | LOC: HO.LAB 08:11 | PROVIDERS: PCP Internal Medicine; Visit Provider Internal Medicine | DX: Z20.828 Contact with and (suspected) exposure to other viral communicable diseases (principal) | CPT/HCPCS: C9803; U0003 ==

== ENCOUNTER 2020-06-20 15:39 | Outpatient (REF) | payer BC, SELFPAY | END 2020-06-20 15:40 | disposition home or self-care (01) | LOC: HO.LAB 15:39 | PROVIDERS: Visit Provider Internal Medicine | DX: Z20.828 Contact with and (suspected) exposure to other viral communicable diseases (principal) | CPT/HCPCS: C9803; U0003 ==

== ENCOUNTER 2022-06-13 08:16 | Inpatient (IN) | payer BC, SELFPAY ==
[2022-06-13] VITALS (8 sets, daily range): BP systolic 100–156; BP diastolic 57–104; PULSE 62–124; RESP 16–27; TEMP 36.2–36.8; O2SAT 94–99; BMI 28.8
--- NOTE | ~2022-06-13 | XR_ITS ---
EXAMINATION: XR CHEST CLINICAL INFORMATION: Shortness of breath and wheezing COMPARISON: May 09, [address] scan of May 19, 2020 TECHNIQUE: AP portable view of the chest was obtained. FINDINGS: Study is limited due to underpenetration at the lung bases. There does appear to be some parenchymal density at the left base similar to prior studies which may be related to atelectasis or scarring. No pneumothorax or pleural effusion is seen. Heart upper limits of normal in size. No evidence of pulmonary edema. XR/XR chest 1V IMPRESSION: No significant acute parenchymal disease identified.
[2022-06-13 09:37] LABS: Influenza A PCR NEGATIVE (Negative); Influenza B PCR NEGATIVE (Negative); Resp Syncy Virus RNA Qual PCR NEGATIVE (Negative); SARS COV2 PCR INHOUSE POSITIVE (Negative)
--- NOTE | 2022-06-13 09:37 | ECG_ITS ---
Test Reason : SOB Blood Pressure : / mmHG Vent. Rate : 118 BPM Atrial Rate : 000 BPM P-R Int : 000 ms QRS Dur : 086 ms QT Int : 342 ms P-R-T Axes : 000 062 080 degrees QTc Int : 479 ms Atrial fibrillation with rapid ventricular response Nonspecific T wave abnormality Abnormal ECG When compared with ECG of 09-MAY-2016 21:23, Atrial fibrillation has replaced Sinus rhythm Vent. rate has increased BY 49 BPM Nonspecific T wave abnormality, worse in Lateral leads Referred By: Tash Du Electronically Signed By:Raulito Bell
--- NOTE | 2022-06-13 10:00 | ED.ASTHMA ---
HPI - Asthma General Chief Complaint: Upper Respiratory Symptoms Stated Complaint: Asthma, cough Time Seen by Provider: 06/13/22 09:12 Source: patient Mode of arrival: ambulatory Limitations: no limitations History of Present Illness HPI Narrative: 51yoM c PMHx of HTN and asthma presenting to the ER with complaints of chills, fatigue, malaise, dizziness, headaches, nasal congestion/rhinorrhea, ear pain, sore throat, productive cough with shortness of breath/chest tightness for approximately 10 days. Which is worse today. Reports he has been using his albuterol inhaler with minimal symptomatic relief. Reports he has been hospitalized in the past for is asthma although has never been intubated. He is unaware of any sick contacts. He denies any measured fevers, neck pain/stiffness, nausea/vomiting, abdominal pain, flank pain, dysuria, lower extremity edema or calf tenderness, rashes or any other symptoms complaints or concerns at this time. MD complaint: asthma attack , shortness of breath and wheezing Onset (ago): day(s) (10) Severity: severe and worse than usual Context: none known Associated symptoms: productive cough and chest pain Asthma History: childhood onset, history of frequent attacks and history of prior ED visit Treatments Prior to Arrival: inhaled bronchodilator Related Data Current Asthma Therapy: inhaled bronchodilator Home Medications Medication Instructions Recorded Confirmed amlodipine 10 mg tablet 10 mg PO DAILY 05/19/20 05/19/20 carvedilol 6.25 mg tablet 6.25 mg PO DAILY 05/19/20 05/19/20 Previous Rx's Medication Instructions Recorded acetaminophen 300 mg-codeine 30 mg 1 tab PO Q8H PRN pain #20 tabs 05/22/20 tablet dexamethasone 6 mg tablet 6 mg PO DAILY #7 tabs 05/22/20 (Decadron) dextromethorphan-guaifenesin 10 5 ml PO Q6H PRN Cough #1,000 mL 05/22/20 mg-100 mg/5 mL oral syrup hydrocodone 10 mg-acetaminophen 1 tab PO Q6H PRN pain #14 tabs 05/22/20 300 mg tablet (Vicodin HP) Allergies Allergy/AdvReac Type Severity Reaction Status Date / Time Penicillins [PENICILLINS] Allergy Mild HIVES Verified 06/13/22 08:35 Review of Systems Review of Systems: Constitutional : denies med noncompliance, no history of PE or DVT, denies recent travel, No Fever, + Chills/fatigue/malaise ENT/Mouth : No Hoarseness, + sore throat, + Rhinorrhea, + Nasal congestion, No Sinus Pressure, + Ear Pain, No stridor, Eyes: No Redness, No Discharge, No Vision Changes Cardiovascular : + Chest Pain, + SOB, No Dyspnea on Exertion, No Edema, no pleurisy, Respiratory : + Cough, + wheezing, + Sputum, no stridor, no hemoptysis, Gastrointestinal : No Nausea, No Vomiting, No Diarrhea, No abdominal Pain Genitourinary : No Dysuria, No Hematuria Musculoskeletal : No joint pain/swelling, + Myalgias Extremities: no extremity swelling /pain Skin : No rash, no itching, no swelling Neuro : No Weakness, No Numbness, + Headache, + Dizziness, No Paresthesias Psych : No anxiety, depression Heme/Lymph: No Bruising, No Bleeding Endocrine : No Polyuria, No Polydipsia Yes all other systems are reviewed and are negative [facility] Past Medical History Attestation statement: The following information was validated with the patient. Source: old records reviewed and nursing notes reviewed Medical History Asthma Hypertension No known health problems Social History Social History Household Members: Spouse Housing: Apartment Do you presently have visiting nurse or other home services: No Alcohol intake: current Alcohol intake frequency: a few times a week Advance Directives: No Advance Directives Information Provided: Yes service: No Current occupational status: employed Physical Exam Vital Signs: Vital Signs: Last Vital Signs Temp 97.4 F 06/13/22 08:35 Pulse 112 H 06/13/22 12:19 Resp 20 06/13/22 12:19 BP 135/104 H 06/13/22 12:12 Pulse Ox 95 06/13/22 12:12 O2 Del Method 06/13/22 12:12 BMI result Body Mass Index 28.8 vital signs have been reviewed as normal and appeared to be correct. Blood pressure normal. Heart rate normal. Respiration rate normal. Temperature normal. Oxygen saturation normal. Appearance: Alert. Oriented X3. In acute respiratory distress. Head: Normal external exam. Normocephalic. Atraumatic. No Elaine signs noted. No raccoon eyes noted Eyes: PERRLA. EOMI. Conjunctiva and sclera normal. Eyelids normal. ENT: EAC normal. Right tympanic membrane possible perforation patient appears to have otitis media possible otitis externa to the right ear. Left external ear canal within normal limits and left tympanic membrane within normal limits. Pharynx normal. Uvula midline. Moist mucous membranes. No lesions/ulcerations or masses noted on the tongue. Normal voice. No trismus noted. No drooling noted. No muffled voice noted. Neck: Normal inspection. Neck supple. FROM. No adenopathy. Thyroid Normal. No meningeal signs. CVS: Normal heart rate and rhythm. Heart sound normal. Pulses normal throughout. No murmurs/rales/gallops. Respiratory: In acute respiratory distress. With decreased breath sounds and inspiratory and expiratory wheezing throughout. Patient also noted to have mild rales. Questioning rhonchi. Chest is nontender. No crepitus is noted. Patient noted to have accessory muscle usage and tracheal tugging. Abdomen: Soft and nontender. Nondistended. No guarding. No rigidity. Bowel sounds normal in all 4 quadrants. No distention noted. No organomegaly noted. No visible injury noted. Back: No CVA tenderness. Full range of motion noted. Nontender. Skin: Skin warm and dry. Normal skin color. Normal skin turgor. No rashes/lesions/lacerations noted. Extremities: No lower extremity edema. No calf tenderness is noted. Extremities exhibit normal range of motion and nontender. Neuro: Oriented X 3. No motor deficit. No sensory deficit. Normal steady gait. No focal neuro deficits noted. CN's II-XII intact bilaterally? Vascular: + radial pulses/+ 2 distal pedal pulses/+2 dorsalis pedis b/l. Normal cap refill. No cyanosis noted to upper extremity nails and lower extremity toes nails. Course Course Course Narrative: 9:40am - 51yoM c PMHx of HTN and asthma presenting to the ER with complaints of chills, fatigue, malaise, dizziness, headaches, nasal congestion/rhinorrhea, ear pain, sore throat, productive cough with shortness of breath/chest tightness for approximately 10 days. Which is worse today. Reports he has been using his albuterol inhaler with minimal symptomatic relief. On exam patient is alert and oriented. Although and respiratory distress with decreased breath sounds and inspiratory and expiratory wheezing throughout with accessory muscle usage noted. Although vital signs are stable within normal limits oxygen saturation 99% on room air. CV RRR. Abdomen is soft nontender. No lower extremity edema or calf tenderness noted. Plan: Will obtain labs, blood cultures, lactic acid, EKG, chest x-ray, COVID/RSV/flu swab. Provide a L IV fluids with 1 hour long breathing treatment with 2 g of magnesium and 125 mg of IV Solu-Medrol along with Tessalon Perles and re-evaluate. Reevaluation(s) Reevaluation #1: Labs return and reviewed - Positive for COVID. - BNP 377. Therefore fluid stopped at this time. Patient only received approximately 60 mL of IV fluids. - troponin 7.5. - ALT 62. EKG revealed - Patient is a new onset AFib with ventricular rate of 118 with RVR nonspecific T-wave abnormalities. Plan: Placed on the procurement buyer and he will be given 5 mg of IV metoprolol. I discussed this case with marketing proposal specialist Dr. Bell he agrees with plan. Will re-evaluate. Time: 11:14 Reevaluation #2: Naveed Vasc score for atrial fibrillation stroke risk is 1 point as patient only has a history of hypertension Therefore I discussed this with Dr. Gillis who recommended starting the patient on 25 mg of p.o. metoprolol will start at this time as patient's rate is now 90-110. And we will not put him on anticoagulation due to NAVEED Vasc score less than 2. Plan will be to admit for new onset atrial fibrillation, CHF, COVID with asthma exacerbation. Patient understands agrees with this plan. Time: 11:14 Reevaluation #3: - after the breathing treatment patient's rate went into the 130's therefore patient was seen by Dr. Ahumada and patient is being started on diltiazem drip at this time. Patient understand he is being admitted for atrial fibrillation with RVR new onset with COVID and asthma exacerbation and right-sided ear infection. Time: 12:44 Medications Administered Discontinued Medications Generic Name Dose Route Start Last Admin Trade Name Freq PRN Reason Stop Dose Admin Benzonatate 100 mg 06/13/22 10:21 06/13/22 10:52 Benzonatate 100 Mg Capsule PO 06/13/22 10:22 Not Given ONCE ONE Benzonatate 100 mg 06/13/22 10:53 06/13/22 11:02 Benzonatate 100 Mg Capsule PO 06/13/22 10:54 100 mg ONCE ONE Administration Albuterol Sulfate 7.5 mg/ 0 mg 06/13/22 09:37 06/13/22 10:20 Albuterol/Ipratropium 3 ml INHALE 06/13/22 09:38 Not Given ONCE ONE Albuterol Sulfate 7.5 mg/ 0 mg 06/13/22 11:09 06/13/22 12:19 Albuterol/Ipratropium 3 ml INHALE 06/13/22 11:10 7.5 each ONCE ONE Administration Sodium Chloride 1,000 mls @ 999 mls/hr 06/13/22 09:45 06/13/22 11:35 Ns IVCONT 06/13/22 10:45 Infused .Q1H1M KIERRA Infusion Magnesium Sulfate 2 gm in 50 mls @ 25 mls/hr 06/13/22 09:37 06/13/22 11:20 Magnesium Sulfate/H2o IV 06/13/22 11:36 Infused ONCE ONE Infusion Ceftriaxone Sodium 1 gm/ 50 mls @ 100 mls/hr 06/13/22 11:26 06/13/22 12:33 Sodium Chloride IV 06/13/22 11:55 Infused ONCE ONE Infusion Methylprednisolone Sodium Succinate 125 mg 06/13/22 09:37 06/13/22 10:33 Methylprednisolone Sod Succ 125 Mg/2 Ml Vial IVPUSH 06/13/22 09:38 125 mg ONCE ONE Administration Metoprolol Tartrate 5 mg 06/13/22 10:15 06/13/22 10:35 Metoprolol Tartrate 5 Mg/5 Ml Vial IVPUSH 06/13/22 10:16 5 mg ONCE ONE Administration Metoprolol Tartrate 25 mg 06/13/22 11:12 06/13/22 12:00 Metoprolol Tartrate 25 Mg Tablet PO 06/13/22 11:13 25 mg ONCE ONE Administration Protocol MDM - Asthma Differential Diagnosis Differential diagnosis: Likely Acute exacerbation, Status asthmaticus, Acute asthmatic bronchitis and Pneumonia Medical Records Attestation: I reviewed the patient's medical records. Lab Data Attestation: I reviewed the patient's lab results. Result diagrams: 06/13/22 10:29 06/13/22 10:29 Labs: Lab Results 06/13/22 06/13/22 06/13/22 Range/Units 08:40 10:29 10:29 WBC 5.5 (4.8-10.8) X10*3/uL RBC 5.61 (4.60-5.80) X10*6/uL Hgb 15.5 (14.0-18.0) g/dl Hct 47.6 (42.0-52.0) % MCV 84.8 (80.0-98.0) fL MCH 27.6 (27.0-33.0) pg MCHC 32.6 (31.0-36.0) g/dl RDW 14.7 (11.0-16.0) % Plt Count 197 (160-400) X10*3/uL MPV 9.8 (9.4-12.4) fL Immature Gran % (Auto) 0.2 (0.0-0.4) % Neut % (Auto) 51.4 (45-73) % Lymph % (Auto) 36.3 (20-40) % [place] % (Auto) 10.6 (2-11) % Eos % (Auto) 1.1 (0-4) % Baso % (Auto) 0.4 (0-2) % Lymph # (Auto) 2.0 (1.2-4.9) X10*3/uL [place] # (Auto) 0.6 (0.1-1.2) X10*3/uL Eos # (Auto) 0.1 (0.0-0.4) X10*3/uL Baso # (Auto) 0.0 (0.0-0.2) X10*3/uL Abs Immat Gran (auto) 0.01 (0.00-0.03) X10*3/uL Absolute Neuts (auto) 2.8 (2.0-8.3) x10*3/uL Absolute Nucleated RBC 0.000 (0.0-0.012) X10*3/uL Nucleated RBC % (auto) 0.0 (0.0-0.2) /100WBC PT 12.5 (10.0-13.1) SEC INR 1.1 (0.9-1.1) Sodium (135-145) mmol/L Potassium (3.3-5.1) mmol/L Chloride (96-108) mmol/L Carbon Dioxide (22-29) mmol/L Anion Gap (12-20) BUN (9-16) mg/dL Creatinine (0.5-1.4) mg/dL Estim Creat Clear Calc Estimated GFR Random Glucose (60-115) mg/dL Lactic Acid (0.5-2.0) mmol/L Calcium (8.4-10.2) mg/dL Magnesium (1.6-2.6) mg/dL Total Bilirubin (0.0-1.0) mg/dL AST (5-37) U/L ALT (0-40) U/L Alkaline Phosphatase (39-117) U/L Troponin I High Sens (<3.5-35.0) ng/L B-Natriuretic Peptide (<100) pg/mL Total Protein (6.5-8.0) g/dL Albumin (3.5-5.0) g/dL Urine Color Urine Appearance Urine pH (5.0-9.0) Ur Specific [place] (1.005-1.025) Urine Protein (Neg-Trace) mg/dL Urine Glucose (UA) (Negative) mg/dL Urine Ketones (Negative) mg/dL Urine Blood (Negative) Urine Nitrite (Negative) Ur Leukocyte Esterase (Negative) Urine RBC (0-2) /HPF Urine WBC (0-5) /HPF Ur Squamous Epith Cells (0-2) /HPF Urine Bacteria (None Seen) Hyaline Casts (0-2) /LPF Influenza Type A (PCR) NEGATIVE (Negative) Influenza Type B (PCR) NEGATIVE (Negative) RSV RNA Qual (PCR) NEGATIVE (Negative) SARS-CoV-2 RNA (RT-PCR) POSITIVE A (Negative) 06/13/22 06/13/22 06/13/22 Range/Units 10:29 10:29 10:29 WBC (4.8-10.8) X10*3/uL RBC (4.60-5.80) X10*6/uL Hgb (14.0-18.0) g/dl Hct (42.0-52.0) % MCV (80.0-98.0) fL MCH (27.0-33.0) pg MCHC (31.0-36.0) g/dl RDW (11.0-16.0) % Plt Count (160-400) X10*3/uL MPV (9.4-12.4) fL Immature Gran % (Auto) (0.0-0.4) % Neut % (Auto) (45-73) % Lymph % (Auto) (20-40) % [place] % (Auto) (2-11) % Eos % (Auto) (0-4) % Baso % (Auto) (0-2) % Lymph # (Auto) (1.2-4.9) X10*3/uL [place] # (Auto) (0.1-1.2) X10*3/uL Eos # (Auto) (0.0-0.4) X10*3/uL Baso # (Auto) (0.0-0.2) X10*3/uL Abs Immat Gran (auto) (0.00-0.03) X10*3/uL Absolute Neuts (auto) (2.0-8.3) x10*3/uL Absolute Nucleated RBC (0.0-0.012) X10*3/uL Nucleated RBC % (auto) (0.0-0.2) /100WBC PT (10.0-13.1) SEC INR (0.9-1.1) Sodium 141 (135-145) mmol/L Potassium 4.0 (3.3-5.1) mmol/L Chloride 108 (96-108) mmol/L Carbon Dioxide 23 (22-29) mmol/L Anion Gap 14 (12-20) BUN 16 (9-16) mg/dL Creatinine 0.90 (0.5-1.4) mg/dL Estim Creat Clear Calc 106.8 Estimated GFR > 60 Random Glucose 111 (60-115) mg/dL Lactic Acid 2.0 (0.5-2.0) mmol/L Calcium 8.8 (8.4-10.2) mg/dL Magnesium 1.9 (1.6-2.6) mg/dL Total Bilirubin 0.9 (0.0-1.0) mg/dL AST 35 (5-37) U/L ALT 62 H (0-40) U/L Alkaline Phosphatase 68 (39-117) U/L Troponin I High Sens 7.5 (<3.5-35.0) ng/L B-Natriuretic Peptide (<100) pg/mL Total Protein 7.1 (6.5-8.0) g/dL Albumin 3.9 (3.5-5.0) g/dL Urine Color Urine Appearance Urine pH (5.0-9.0) Ur Specific [place] (1.005-1.025) Urine Protein (Neg-Trace) mg/dL Urine Glucose (UA) (Negative) mg/dL Urine Ketones (Negative) mg/dL Urine Blood (Negative) Urine Nitrite (Negative) Ur Leukocyte Esterase (Negative) Urine RBC (0-2) /HPF Urine WBC (0-5) /HPF Ur Squamous Epith Cells (0-2) /HPF Urine Bacteria (None Seen) Hyaline Casts (0-2) /LPF Influenza Type A (PCR) (Negative) Influenza Type B (PCR) (Negative) RSV RNA Qual (PCR) (Negative) SARS-CoV-2 RNA (RT-PCR) (Negative) 06/13/22 06/13/22 Range/Units 10:29 12:05 WBC (4.8-10.8) X10*3/uL RBC (4.60-5.80) X10*6/uL Hgb (14.0-18.0) g/dl Hct (42.0-52.0) % MCV (80.0-98.0) fL MCH (27.0-33.0) pg MCHC (31.0-36.0) g/dl RDW (11.0-16.0) % Plt Count (160-400) X10*3/uL MPV (9.4-12.4) fL Immature Gran % (Auto) (0.0-0.4) % Neut % (Auto) (45-73) % Lymph % (Auto) (20-40) % [place] % (Auto) (2-11) % Eos % (Auto) (0-4) % Baso % (Auto) (0-2) % Lymph # (Auto) (1.2-4.9) X10*3/uL [place] # (Auto) (0.1-1.2) X10*3/uL Eos # (Auto) (0.0-0.4) X10*3/uL Baso # (Auto) (0.0-0.2) X10*3/uL Abs Immat Gran (auto) (0.00-0.03) X10*3/uL Absolute Neuts (auto) (2.0-8.3) x10*3/uL Absolute Nucleated RBC (0.0-0.012) X10*3/uL Nucleated RBC % (auto) (0.0-0.2) /100WBC PT (10.0-13.1) SEC INR (0.9-1.1) Sodium (135-145) mmol/L Potassium (3.3-5.1) mmol/L Chloride (96-108) mmol/L Carbon Dioxide (22-29) mmol/L Anion Gap (12-20) BUN (9-16) mg/dL Creatinine (0.5-1.4) mg/dL Estim Creat Clear Calc Estimated GFR Random Glucose (60-115) mg/dL Lactic Acid (0.5-2.0) mmol/L Calcium (8.4-10.2) mg/dL Magnesium (1.6-2.6) mg/dL Total Bilirubin (0.0-1.0) mg/dL AST (5-37) U/L ALT (0-40) U/L Alkaline Phosphatase (39-117) U/L Troponin I High Sens (<3.5-35.0) ng/L B-Natriuretic Peptide 377 H (<100) pg/mL Total Protein (6.5-8.0) g/dL Albumin (3.5-5.0) g/dL Urine Color Yellow Urine Appearance Clear Urine pH 6.0 (5.0-9.0) Ur Specific [place] 1.020 (1.005-1.025) Urine Protein Trace (Neg-Trace) mg/dL Urine Glucose (UA) >=1000 H (Negative) mg/dL Urine Ketones Negative (Negative) mg/dL Urine Blood Negative (Negative) Urine Nitrite Negative (Negative) Ur Leukocyte Esterase Negative (Negative) Urine RBC 0-2 (0-2) /HPF Urine WBC 0-5 (0-5) /HPF Ur Squamous Epith Cells 0-2 (0-2) /HPF Urine Bacteria None Seen (None Seen) Hyaline Casts 0-2 (0-2) /LPF Influenza Type A (PCR) (Negative) Influenza Type B (PCR) (Negative) RSV RNA Qual (PCR) (Negative) SARS-CoV-2 RNA (RT-PCR) (Negative) Imaging Data Chest x-ray: Attestation: I personally reviewed and interpreted this imaging study as follows: Radiologist's impression: FINDINGS: Study is limited due to underpenetration at the lung bases. There does appear to be some parenchymal density at the left base similar to prior studies which may be related to atelectasis or scarring. No pneumothorax or pleural effusion is seen. Heart upper limits of normal in size. No evidence of pulmonary edema. XR/XR chest 1V IMPRESSION: No significant acute parenchymal disease identified. ECG Data Attestation: I personally reviewed and interpreted this ECG as follows: ECG interpretation date: 06/13/22 ECG interpretation time: 09:51 Prior ECG tracings: available for review Interpretation: Atrial fibrillation with RVR with ventricular rate of [address] abnormalities no acute ischemic change are noted. This is new onset AFib it does not appear that the patient has had this in the past. Critical Care Time Critical Care Time Critical Care Time: Yes Total Critical Care Time: 60 Attestation: I personally attest to this time spent taking care of the patient Discharge Plan Discharge Clinical Impression: Atrial fibrillation with rapid ventricular response, Asthma exacerbation, COVID-19, CHF (congestive heart failure), Acute right otitis media Patient Disposition: Admitted As Inpatient
[2022-06-13] MEDS: methylPREDNISolone Sod Succ 125 MG/2 ML VIAL IVPUSH (10:33)
[2022-06-13 10:34] LABS: MANUAL DIFF FLAG NO
[2022-06-13] MEDS: Metoprolol Tartrate 5 MG/5 ML VIAL IVPUSH (10:35)
[2022-06-13 10:36] LABS: Basophils Percent Auto 0.4 % (0-2); Eosinophils Absolute Auto 0.1 X10*3/uL (0.0-0.4); Eosinophils Percent Auto 1.1 % (0-4); Hematocrit 47.6 % (42.0-52.0); Hemoglobin 15.5 g/dl (14.0-18.0); Imm Gran Abs Auto 0.01 X10*3/uL (0.00-0.03); Imm Gran Pct Auto 0.2 % (0.0-0.4); Lymphocytes Percent Auto 36.3 % (20-40); Mean Corpuscular HGB Conc 32.6 g/dl (31.0-36.0); Mean Corpuscular Hemoglobin 27.6 pg (27.0-33.0); Mean Corpuscular Volume 84.8 fL (80.0-98.0); Mean Platelet Volume 9.8 fL (9.4-12.4); Monocytes Absolute Auto 0.6 X10*3/uL (0.1-1.2); Monocytes Percent Auto 10.6 % (2-11); Neutrophils Absolute Auto 2.8 x10*3/uL (2.0-8.3); Neutrophils Percent Auto 51.4 % (45-73); Platelet Count 197 X10*3/uL (160-400); Red Blood Count 5.61 X10*6/uL (4.60-5.80); Red Cell Distribution Width 14.7 % (11.0-16.0); White Blood Count 5.5 X10*3/uL (4.8-10.8)
[2022-06-13 10:41] LABS: INTERNATIONAL NORM RATIO 1.1 (0.9-1.1); Prothrombin Time 12.5 SEC (10.0-13.1)
[2022-06-13] MEDS: Magnesium Sulfate/H2O 2 GM/50 ML PIGGYBACK IV (10:46)
[2022-06-13] MEDS: 0.9 % Sodium Chloride 1,000 ML 999 ML IVCONT (10:50)
[2022-06-13 11:01] LABS: Troponin-I High Sensitivity 7.5 ng/L (<3.5-35.0)
[2022-06-13] MEDS: Benzonatate 100 MG CAPSULE PO (11:02)
[2022-06-13 11:03] LABS: B Type Natriuretic Peptide 377 pg/mL (<100)
[2022-06-13 11:56] LABS: Alanine Aminotransferase 62 U/L (0-40); Albumin Level 3.9 g/dL (3.5-5.0); Alkaline Phosphatase 68 U/L (39-117); Anion Gap 14 (12-20); Aspartate Amino Transferase 35 U/L (5-37); Blood Urea Nitrogen 16 mg/dL (9-16); Calcium 8.8 mg/dL (8.4-10.2); Carbon Dioxide 23 mmol/L (22-29); Chloride 108 mmol/L (96-108); Creatinine Clr Calc Pharmacy 106.8; Estimated Glomerular Filt Rate > 60; Glucose Random 111 mg/dL (60-115); Magnesium 1.9 mg/dL (1.6-2.6); Sodium 141 mmol/L (135-145); Total Protein 7.1 g/dL (6.5-8.0)
[2022-06-13] MEDS: cefTRIAXone sodium 1 GM in 0.9 % Sodium Chloride 50 ML IV (11:59)
[2022-06-13] MEDS: Metoprolol Tartrate 25 MG TABLET PO (12:00)
[2022-06-13 12:08] LABS: Bilirubin Total 0.9 mg/dL (0.0-1.0)
[2022-06-13 12:14] LABS: Appearance Urine Clear; Color Urine Yellow; Glucose Urine UA >=1000 mg/dL (Negative); Leukocyte Esterase Urine Negative (Negative); Nitrite Urine Negative (Negative); UMIC TRIGGER UACC YES; Urine Blood Negative (Negative); Urine Ketones Negative (Negative); Urine Protein Trace mg/dL (Neg-Trace)
[2022-06-13 12:19] LABS: Bacteria Urine None Seen (None Seen); Hyaline Casts Urine 0-2 /LPF (0-2); RBC Urine 0-2 /HPF (0-2); Squamous Epithelial Cell Urine 0-2 /HPF (0-2); WBC Urine 0-5 /HPF (0-5)
[2022-06-13] MEDS: Albuterol Sulfate 7.5 MG, Albuterol/Iprat 2.5/0.5MG 3 ML 3 ML INHALE (12:19)
--- NOTE | 2022-06-13 12:51 | P.HPHOSP_ITS ---
History of Present Illness Date of Service: 06/13/22 Chief Complaint: shortness of breath This is a 51-year-old male with a past medical history of hypertension, prior COVID pneumonia in 2019 and asthma who presents to the emergency room with complaints of shortness of breath which has progressed over the last 2 weeks. The patient reports that initially he felt that this was due to an exacerbation of asthma and so he uses inhalers. Reports that initially the inhalers helped, however as the days progressed, he was continually feeling short of breath and reports that this was different than his usual asthma. He denies feeling palpitations but states that there was something different in his chest. He den ies any anginal symptoms. He reports that because his inhalers were not working any longer he decided to come to the emergency room for further workup. He denies any fevers or chills. He reports a nonproductive cough. He denies any sick contacts. He reports being vaccinated for COVID with 2 doses of the mRNA vaccine, did not get a booster. Upon arrival to the emergency room, patient was noted to be in new onset AFib with RVR. His heart rates were initially in the 120s. He was given IV me toprolol with improvement is in his rates. Subsequently he was given oral metoprolol. However the the effect is only short lasting and his heart rates are declining back into the 140s. He was given IV Solu-Medrol as well as updrafts. He was given empiric IV ceftriaxone. Patient is seen and examined the emergency room. His heart rates remain in the 140s. A Cardizem drip will be initiated and he will be admitted for further care. Review of Systems Review of Systems: negative except HPI [facility] Medical History (Updated 06/13/22 @ 11:30 by ELIAS Marvin) Asthma Hypertension No known health problems Pertinent family history: CAD in brother and father Surgical History (Updated 06/13/22 @ 12:58 by Andrew Ahumada MD) History of ear surgery Social History (Updated 06/13/22 @ 13:00 by Andrew Ahumada MD) Household Members: Spouse Housing: Apartment Do you presently have visiting nurse or other home services: No Alcohol intake: current Patient Tobacco Use Status: Never used Tobacco Use of substances other than those prescribed or required for medical reasons: No Advance Directives: No Advance Directives Information Provided: Yes service: No Current occupational status: employed Meds Allergies Allergy/AdvReac Type Severity Reaction Status Date / Time Penicillins [PENICILLINS] Allergy Mild HIVES Verified 06/13/22 08:35 Active Medications: Current Medications Diltiazem HCl 125 mg/ Sodium (Chloride) 125 mls @ 0 mls/hr IVCONT .Q0M KIERRA; Protocol Pharmacy Consult (Consult Rx Perform Med Rec) 1 each MISCELLANE ONCE PRN PRN Reason: Consult order Home Medications Medication Instructions Recorded Confirmed Last Taken Type amlodipine 10 mg tablet 10 mg PO DAILY 05/19/20 05/19/20 05/12/20 History carvedilol 6.25 mg tablet 6.25 mg PO DAILY 05/19/20 05/19/20 05/12/20 History Physical Exam Vital Signs and Narrative: Vital Signs: Last Vital Signs Temp 97.4 F 06/13/22 08:35 Pulse 112 H 06/13/22 12:19 Resp 20 06/13/22 12:19 BP 135/104 H 06/13/22 12:12 Pulse Ox 95 06/13/22 12:12 O2 Del Method 06/13/22 12:12 BMI result Body Mass Index 28.8 Const: Other: Constitutional - Awake and Alert, No apparent distress HEENT - PERRLA, EOMI; erythema of the r tympanic membrane, appears to be intact and not perforated Cardiovascular - IRR rates in the 140s Respiratory - Diminshed sounds with scattered trace wheezing; no rales; no jvd no edema Gastrointestinal - NT / ND; +BS; No rebound or guarding - No CVA tenderness Extremities - no calf tenderness bilaterally, no swelling Musculoskeletal - Normal inspection, normal ROM Skin - Warm/Dry Neurological - Alert & oriented x3, No focal deficit Psychological - Appropriate affect Results Labs CBC and Chem 7: 06/13/22 10:29 06/13/22 10:29 Labs: Laboratory Results - last 24 hr 06/13/22 06/13/22 06/13/22 08:40 10:29 10:29 MCV 84.8 MCH 27.6 MCHC 32.6 RDW 14.7 Plt Count 197 MPV 9.8 Immature Gran % (Auto) 0.2 Neut % (Auto) 51.4 Lymph % (Auto) 36.3 [place] % (Auto) 10.6 Eos % (Auto) 1.1 Baso % (Auto) 0.4 Lymph # (Auto) 2.0 [place] # (Auto) 0.6 Eos # (Auto) 0.1 Baso # (Auto) 0.0 Abs Immat Gran (auto) 0.01 Absolute Neuts (auto) 2.8 Absolute Nucleated RBC 0.000 Nucleated RBC % (auto) 0.0 PT 12.5 INR 1.1 Anion Gap Estim Creat Clear Calc Estimated GFR Random Glucose Lactic Acid Calcium Magnesium Total Bilirubin AST ALT Alkaline Phosphatase Troponin I High Sens B-Natriuretic Peptide Total Protein Albumin Urine Color Urine Appearance Urine pH Ur Specific [place] Urine Protein Urine Glucose (UA) Urine Ketones Urine Blood Urine Nitrite Ur Leukocyte Esterase Urine RBC Urine WBC Ur Squamous Epith Cells Urine Bacteria Hyaline Casts Influenza Type A (PCR) NEGATIVE Influenza Type B (PCR) NEGATIVE RSV RNA Qual (PCR) NEGATIVE SARS-CoV-2 RNA (RT-PCR) POSITIVE A 06/13/22 06/13/22 06/13/22 10:29 10:29 10:29 MCV MCH MCHC RDW Plt Count MPV Immature Gran % (Auto) Neut % (Auto) Lymph % (Auto) [place] % (Auto) Eos % (Auto) Baso % (Auto) Lymph # (Auto) [place] # (Auto) Eos # (Auto) Baso # (Auto) Abs Immat Gran (auto) Absolute Neuts (auto) Absolute Nucleated RBC Nucleated RBC % (auto) PT INR Anion Gap 14 Estim Creat Clear Calc 106.8 Estimated GFR > 60 Random Glucose 111 Lactic Acid 2.0 Calcium 8.8 Magnesium 1.9 Total Bilirubin 0.9 AST 35 ALT 62 H Alkaline Phosphatase 68 Troponin I High Sens 7.5 B-Natriuretic Peptide Total Protein 7.1 Albumin 3.9 Urine Color Urine Appearance Urine pH Ur Specific [place] Urine Protein Urine Glucose (UA) Urine Ketones Urine Blood Urine Nitrite Ur Leukocyte Esterase Urine RBC Urine WBC Ur Squamous Epith Cells Urine Bacteria Hyaline Casts Influenza Type A (PCR) Influenza Type B (PCR) RSV RNA Qual (PCR) SARS-CoV-2 RNA (RT-PCR) 06/13/22 06/13/22 10:29 12:05 MCV MCH MCHC RDW Plt Count MPV Immature Gran % (Auto) Neut % (Auto) Lymph % (Auto) [place] % (Auto) Eos % (Auto) Baso % (Auto) Lymph # (Auto) [place] # (Auto) Eos # (Auto) Baso # (Auto) Abs Immat Gran (auto) Absolute Neuts (auto) Absolute Nucleated RBC Nucleated RBC % (auto) PT INR Anion Gap Estim Creat Clear Calc Estimated GFR Random Glucose Lactic Acid Calcium Magnesium Total Bilirubin AST ALT Alkaline Phosphatase Troponin I High Sens B-Natriuretic Peptide 377 H Total Protein Albumin Urine Color Yellow Urine Appearance Clear Urine pH 6.0 Ur Specific [place] 1.020 Urine Protein Trace Urine Glucose (UA) >=1000 H Urine Ketones Negative Urine Blood Negative Urine Nitrite Negative Ur Leukocyte Esterase Negative Urine RBC 0-2 Urine WBC 0-5 Ur Squamous Epith Cells 0-2 Urine Bacteria None Seen Hyaline Casts 0-2 Influenza Type A (PCR) Influenza Type B (PCR) RSV RNA Qual (PCR) SARS-CoV-2 RNA (RT-PCR) Imaging Radiologist's Impressions: Impressions Chest X-Ray 06/13/22 10:24 IMPRESSION: No significant acute parenchymal disease identified. Assessment and Plan (1) Asthma exacerbation: Status: Acute Plan This is a 51-year-old male with a past medical history of hypertension asthma, prior COVID pneumonia in 2019 presents to the hospital with 2 weeks of progress winnie shortness of breath. His workup in the emergency room reveals new onset AFib with RVR. He is COVID positive but not hypoxia. 1. New onset AFib with RVR Initially responded to IV and p.o. metoprolol, however the response was short- lived. He now is back into the 140s. Will start IV Cardizem drip per protocol. Will consult Cardiology Naveed Vasc score of 1 for hypertension, will hold off on anticoagulation. 2D echo once rates improved 2. COVID asymptomatic without hypoxia monitor for now CTA with mild findings 3. Asthma exacerbation likely due to #2 improved now -- will give 5 days prednisone minimize updrafts as likely contributing to his tachycardia 3. HTN hold bp meds while on cardizem drip 4. Otitis media given IV rocephin, will give PO ceftin starting tomorrow pt does not have severe sepsis 5. Heavy alcohol use reports drinking 15 beers/daily on the weekends, but endorses last drink more than 1 month ago as he is trying to stop. Full Code DVT pptx -- Lovenox Anticipate an inpatient hospitalization spanning at least 2 mid nights for: new onset a. fib with rvr requiring cardizem drip + covid + asthma exacerbation Quality Stroke Does the patient have a stroke diagnosis?: No VTE Prior VTE?: No VTE Risk Level:: Medical - moderate - high VTE Device Contraindication: Treatment Not Indicated VTE Drug Contraindication: Treatment Not Indicated
[2022-06-13] MEDS: Enoxaparin Sodium 40 MG/0.4 ML SYRINGE SUBCUT (13:13)
--- NOTE | 2022-06-13 13:30 | PHA.MEDREC ---
Pharmacy Consult ? Medication Reconciliation Pharmacy has completed the medication reconciliation.
[2022-06-13 13:41] LABS: Troponin-I High Sensitivity 5.8 ng/L (<3.5-35.0)
[2022-06-13] MEDS: dilTIAZem HCL 125 MG in 0.9 % Sodium Chloride 100 ML 10 MG IVCONT (14:44)
[2022-06-13] MEDS: 0.9 % Sodium Chloride Flush 3 ML SYRINGE IVFLUSH ×2 (14:44→21:39)
[2022-06-13] MEDS: Benzonatate 100 MG CAPSULE 200 MG PO (21:38)
[2022-06-14] VITALS (7 sets, daily range): BP systolic 118–148; BP diastolic 65–88; PULSE 70–101; RESP 14–20; TEMP 36.5–37; O2SAT 95–98
[2022-06-14] MEDS: dilTIAZem HCL 125 MG in 0.9 % Sodium Chloride 100 ML 10 MG IVCONT (03:06)
[2022-06-14 06:55] LABS: Hematocrit 46.9 % (42.0-52.0); Hemoglobin 15.3 g/dl (14.0-18.0); Mean Corpuscular HGB Conc 32.6 g/dl (31.0-36.0); Mean Corpuscular Hemoglobin 27.5 pg (27.0-33.0); Mean Corpuscular Volume 84.4 fL (80.0-98.0); Mean Platelet Volume 9.6 fL (9.4-12.4); Platelet Count 220 X10*3/uL (160-400); Red Blood Count 5.56 X10*6/uL (4.60-5.80); Red Cell Distribution Width 14.6 % (11.0-16.0); White Blood Count 8.5 X10*3/uL (4.8-10.8)
[2022-06-14 08:02] LABS: Anion Gap 7 (12-20); Blood Urea Nitrogen 16 mg/dL (9-16); Calcium 9.1 mg/dL (8.4-10.2); Carbon Dioxide 22 mmol/L (22-29); Chloride 110 mmol/L (96-108); Creatinine Clr Calc Pharmacy 124.8; Estimated Glomerular Filt Rate > 60; Glucose Random 121 mg/dL (60-115); Potassium 4.7 mmol/L (3.3-5.1); Sodium 134 mmol/L (135-145)
[2022-06-14] MEDS: predniSONE 20 MG TABLET 40 MG PO (08:45)
[2022-06-14] MEDS: 0.9 % Sodium Chloride Flush 3 ML SYRINGE IVFLUSH ×3 (08:45→20:21)
--- NOTE | 2022-06-14 09:39 | P.PNIM_ITS ---
Subjective Subjective Date of Service: 06/14/22 Interval History: seen and examined slight improvement from yesterday, less powers denies cp or palp reports cough Review of Systems Negative except HPI/interval history. Physical Exam Vital Signs: Vital Signs: Last Vital Signs Temp 97.7 F 06/14/22 08:20 Pulse 100 06/14/22 08:20 Resp 16 06/14/22 08:20 BP 131/88 06/14/22 08:20 Pulse Ox 95 06/14/22 08:20 O2 Del Method 06/14/22 08:20 BMI result Body Mass Index 28.8 Const: Other: General - no acute distress, appears comfortable Cardiovascular -IRR, remains on cardizem drip with rates low 90-100s Lungs - improving air entry b/l Abdomen - soft, nontender, no rebound or guarding Extremities - no edema bilaterally Neuro - awake and alert, no focal deficits Objective Data Active Medications Acetaminophen (Acetaminophen 325 Mg Tablet) 650 mg PO Q6H PRN PRN Reason: Pain, Mild (Pain Scale 1-3) Benzonatate (Benzonatate 100 Mg Capsule) 200 mg PO TID PRN PRN Reason: cough Last Admin: 06/13/22 21:38 Dose: 200 mg Documented By: LEON Cefuroxime Axetil (Cefuroxime Axetil 500 Mg Tablet) 500 mg PO Q12H [facility] Last Admin: 06/14/22 08:45 Dose: 500 mg Documented By: JENA Enoxaparin Sodium (Enoxaparin Sodium 40 Mg/0.4 Ml Syringe) 40 mg SUBCUT Q24H [facility] Last Admin: 06/13/22 13:13 Dose: 40 mg Documented By: SANDY Diltiazem HCl 125 mg/ Sodium (Chloride) 125 mls @ 0 mls/hr IVCONT .Q0M [facility]; Protocol Last Admin: 06/14/22 03:06 Dose: 10 mg/hr, 10 mls/hr Documented By: LEON Levalbuterol HCl (Levalbuterol Hcl 1.25 Mg/0.5 Ml Vial.Neb) 1.25 mg INHALE Q3H PRN PRN Reason: Wheezing Ondansetron HCl (Ondansetron Hcl 4 Mg/2 Ml Vial) 4 mg IVPUSH Q8H PRN PRN Reason: Nausea and Vomiting Pharmacy Consult (Consult Rx Perform Med Rec) 1 each MISCELLANE ONCE PRN PRN Reason: Consult order Prednisone (Prednisone 20 Mg Tablet) 40 mg PO DAILY [facility] Last Admin: 06/14/22 08:45 Dose: 40 mg Documented By: JENA Sodium Chloride (0.9 % Sodium Chloride Flush 3 Ml Syringe) 3 ml IVFLUSH QSHIFT [facility] Last Admin: 06/14/22 08:45 Dose: 3 ml Documented By: JENA Labs CBC & Chem 7: 06/14/22 06:35 06/14/22 06:35 Labs: Laboratory Results - last 24 hr 06/13/22 06/13/22 06/13/22 08:40 10:29 10:29 MCV 84.8 MCH 27.6 MCHC 32.6 RDW 14.7 Plt Count 197 MPV 9.8 Immature Gran % (Auto) 0.2 Neut % (Auto) 51.4 Lymph % (Auto) 36.3 [place] % (Auto) 10.6 Eos % (Auto) 1.1 Baso % (Auto) 0.4 Lymph # (Auto) 2.0 [place] # (Auto) 0.6 Eos # (Auto) 0.1 Baso # (Auto) 0.0 Abs Immat Gran (auto) 0.01 Absolute Neuts (auto) 2.8 Absolute Nucleated RBC 0.000 Nucleated RBC % (auto) 0.0 PT 12.5 INR 1.1 Anion Gap Estim Creat Clear Calc Estimated GFR Random Glucose Lactic Acid Calcium Magnesium Total Bilirubin AST ALT Alkaline Phosphatase Troponin I High Sens B-Natriuretic Peptide Total Protein Albumin Urine Color Urine Appearance Urine pH Ur Specific [place] Urine Protein Urine Glucose (UA) Urine Ketones Urine Blood Urine Nitrite Ur Leukocyte Esterase Urine RBC Urine WBC Ur Squamous Epith Cells Urine Bacteria Hyaline Casts Influenza Type A (PCR) NEGATIVE Influenza Type B (PCR) NEGATIVE RSV RNA Qual (PCR) NEGATIVE SARS-CoV-2 RNA (RT-PCR) POSITIVE A 06/13/22 06/13/22 06/13/22 10:29 10:29 10:29 MCV MCH MCHC RDW Plt Count MPV Immature Gran % (Auto) Neut % (Auto) Lymph % (Auto) [place] % (Auto) Eos % (Auto) Baso % (Auto) Lymph # (Auto) [place] # (Auto) Eos # (Auto) Baso # (Auto) Abs Immat Gran (auto) Absolute Neuts (auto) Absolute Nucleated RBC Nucleated RBC % (auto) PT INR Anion Gap 14 Estim Creat Clear Calc 106.8 Estimated GFR > 60 Random Glucose 111 Lactic Acid 2.0 Calcium 8.8 Magnesium 1.9 Total Bilirubin 0.9 AST 35 ALT 62 H Alkaline Phosphatase 68 Troponin I High Sens 7.5 B-Natriuretic Peptide Total Protein 7.1 Albumin 3.9 Urine Color Urine Appearance Urine pH Ur Specific [place] Urine Protein Urine Glucose (UA) Urine Ketones Urine Blood Urine Nitrite Ur Leukocyte Esterase Urine RBC Urine WBC Ur Squamous Epith Cells Urine Bacteria Hyaline Casts Influenza Type A (PCR) Influenza Type B (PCR) RSV RNA Qual (PCR) SARS-CoV-2 RNA (RT-PCR) 06/13/22 06/13/22 06/13/22 10:29 12:05 13:12 MCV MCH MCHC RDW Plt Count MPV Immature Gran % (Auto) Neut % (Auto) Lymph % (Auto) [place] % (Auto) Eos % (Auto) Baso % (Auto) Lymph # (Auto) [place] # (Auto) Eos # (Auto) Baso # (Auto) Abs Immat Gran (auto) Absolute Neuts (auto) Absolute Nucleated RBC Nucleated RBC % (auto) PT INR Anion Gap Estim Creat Clear Calc Estimated GFR Random Glucose Lactic Acid Calcium Magnesium Total Bilirubin AST ALT Alkaline Phosphatase Troponin I High Sens 5.8 B-Natriuretic Peptide 377 H Total Protein Albumin Urine Color Yellow Urine Appearance Clear Urine pH 6.0 Ur Specific [place] 1.020 Urine Protein Trace Urine Glucose (UA) >=1000 H Urine Ketones Negative Urine Blood Negative Urine Nitrite Negative Ur Leukocyte Esterase Negative Urine RBC 0-2 Urine WBC 0-5 Ur Squamous Epith Cells 0-2 Urine Bacteria None Seen Hyaline Casts 0-2 Influenza Type A (PCR) Influenza Type B (PCR) RSV RNA Qual (PCR) SARS-CoV-2 RNA (RT-PCR) 06/14/22 06/14/22 06:35 06:35 MCV 84.4 MCH 27.5 MCHC 32.6 RDW 14.6 Plt Count 220 MPV 9.6 Immature Gran % (Auto) Neut % (Auto) Lymph % (Auto) [place] % (Auto) Eos % (Auto) Baso % (Auto) Lymph # (Auto) [place] # (Auto) Eos # (Auto) Baso # (Auto) Abs Immat Gran (auto) Absolute Neuts (auto) Absolute Nucleated RBC 0.000 Nucleated RBC % (auto) 0.0 PT INR Anion Gap 7 L Estim Creat Clear Calc 124.8 Estimated GFR > 60 Random Glucose 121 H Lactic Acid Calcium 9.1 Magnesium Total Bilirubin AST ALT Alkaline Phosphatase Troponin I High Sens B-Natriuretic Peptide Total Protein Albumin Urine Color Urine Appearance Urine pH Ur Specific [place] Urine Protein Urine Glucose (UA) Urine Ketones Urine Blood Urine Nitrite Ur Leukocyte Esterase Urine RBC Urine WBC Ur Squamous Epith Cells Urine Bacteria Hyaline Casts Influenza Type A (PCR) Influenza Type B (PCR) RSV RNA Qual (PCR) SARS-CoV-2 RNA (RT-PCR) Assessment and Plan (1) Atrial fibrillation with rapid ventricular response: Status: Acute Plan This is a 51-year-old male with a past medical history of hypertension asthma, prior COVID pneumonia in 2019 presents to the hospital with 2 weeks of progressive shortness of breath.? His workup in the emergency room reveals new onset AFib with RVR.? He is COVID positive but not hypoxia. 1. New onset AFib with RVR remains on IV cardizem drip with rates 90-100s; will start metoprolol 25mg TID and wean cardizem gtt cardiology consult pending 2. COVID asymptomatic without hypoxia monitor for now CTA with mild findings 3. Asthma exacerbation likely due to #2 improved now -- will give 5 days prednisone minimize updrafts as likely contributing to his tachycardia 3. HTN hold bp meds while on cardizem drip 4. Otitis media given IV rocephin, will give PO ceftin starting tomorrow pt does not have severe sepsis 5. Heavy alcohol use reports drinking 15 beers/daily on the weekends, but endorses last drink more than 1 month ago as he is trying to stop. Full Code DVT pptx -- Lovenox requires continued hospitalization for management of a. fib with rvr (he remains on cardizem gtt) Quality Stroke Does the patient have a stroke diagnosis?: No VTE Prior VTE?: No VTE Risk Level:: Medical - moderate - high VTE Device Contraindication: Treatment Not Indicated VTE Drug Contraindication: Treatment Not Indicated
[2022-06-14] MEDS: Metoprolol Tartrate 25 MG TABLET PO ×3 (10:35→20:21)
--- NOTE | 2022-06-14 12:58 | PM.CNCAR ---
History of Present Illness History of Present Illness Date of Service: 06/14/22 Requesting physician: Andrew Ahumada Chief complaint: Afib Narrative: 50 minute gentleman was known history of hypertension and follows with Dr. David Iniguez at [facility]. He is presenting to us for asthma exacerbation. He is COVID positive. He was also noticed to have AFib with RVR. He is a binge drinker over the weekend and drinks up to 15 beers. Denying any palpitations. Has night times dyspnea and coughing which can be orthopnea but also asthma can give very similar symptoms. Denies any palpitation and difficult to know how long he has been in atrial fibrillation. On Cardizem drip with reasonable rate controlled currently. Continue the drip for now. Continue carvedilol and transition to oral diltiazem once heart rates are well controlled. Check echocardiogram tomorrow to assess LV for any cardiomyopathy. If he in fact has cardiomyopathy then I would not use further Cardizem and would consider doing a NED cardioversion and would anticoagulated him in that situation. If no cardiomyopathy and heart rates are well controlled with p.o. medications and he can be discharged home and can see Dr. David Iniguez who is his primary frozen meat cutter and discuss cardioversion as outpatient. Thank you for allowing me to participate in the care of your patient. Please feel free to contact me if you have any questions. [facility] Past Medical History Medical History (Updated 06/13/22 @ 11:30 by ELIAS Marvin) Asthma Hypertension No known health problems Surgical History Surgical History (Updated 06/13/22 @ 12:58 by Andrew Ahumada MD) History of ear surgery Social History Social History (Updated 06/13/22 @ 13:00 by Andrew Ahumada MD) Household Members: Family Housing: Apartment Do you presently have visiting nurse or other home services: No Alcohol intake: current Patient Tobacco Use Status: Never used Tobacco service: No Current occupational status: employed Meds Allergies Allergy/AdvReac Type Severity Reaction Status Date / Time Penicillins [PENICILLINS] Allergy Mild HIVES Verified 06/13/22 08:35 Active Medications: Current Medications Acetaminophen (Acetaminophen 325 Mg Tablet) 650 mg PO Q6H PRN PRN Reason: Pain, Mild (Pain Scale 1-3) Benzonatate (Benzonatate 100 Mg Capsule) 200 mg PO TID PRN PRN Reason: cough Last Admin: 06/13/22 21:38 Dose: 200 mg Cefuroxime Axetil (Cefuroxime Axetil 500 Mg Tablet) 500 mg PO Q12H [facility] Last Admin: 06/14/22 08:45 Dose: 500 mg Enoxaparin Sodium (Enoxaparin Sodium 40 Mg/0.4 Ml Syringe) 40 mg SUBCUT Q24H [facility] Last Admin: 06/13/22 13:13 Dose: 40 mg Diltiazem HCl 125 mg/ Sodium (Chloride) 125 mls @ 0 mls/hr IVCONT .Q0M [facility]; Protocol Last Admin: 06/14/22 03:06 Dose: 10 mg/hr, 10 mls/hr Levalbuterol HCl (Levalbuterol Hcl 1.25 Mg/0.5 Ml Vial.Neb) 1.25 mg INHALE Q3H PRN PRN Reason: Wheezing Metoprolol Tartrate (Metoprolol Tartrate 25 Mg Tablet) 25 mg PO TID [facility]; Protocol Last Admin: 06/14/22 10:35 Dose: 25 mg Ondansetron HCl (Ondansetron Hcl 4 Mg/2 Ml Vial) 4 mg IVPUSH Q8H PRN PRN Reason: Nausea and Vomiting Pharmacy Consult (Consult Rx Perform Med Rec) 1 each MISCELLANE ONCE PRN PRN Reason: Consult order Prednisone (Prednisone 20 Mg Tablet) 40 mg PO DAILY [facility] Last Admin: 06/14/22 08:45 Dose: 40 mg Sodium Chloride (0.9 % Sodium Chloride Flush 3 Ml Syringe) 3 ml IVFLUSH QSHIFT [facility] Last Admin: 06/14/22 08:45 Dose: 3 ml Home Medications Medication Instructions Recorded Confirmed Last Taken Type amlodipine 10 mg tablet 10 mg PO DAILY 05/19/20 06/13/22 06/12/22 History albuterol sulfate 90 mcg/actuation 1 puff inhalation Q6H PRN 06/13/22 06/13/22 06/12/22 History aerosol inhaler Shortness Of Breath Or Wheezing carvedilol 12.5 mg tablet 1 tab PO BID 06/13/22 06/13/22 06/12/22 History Physical Exam Vital Signs: Vital Signs: Last Vital Signs Temp 97.8 F 06/14/22 11:46 Pulse 91 06/14/22 11:46 Resp 16 06/14/22 11:46 BP 124/82 06/14/22 11:46 Pulse Ox 96 06/14/22 11:46 O2 Del Method 06/14/22 11:46 BMI result Body Mass Index 28.8 Objective Labs and Meds Result diagrams: 06/14/22 06:35 06/14/22 06:35 Lab results: Laboratory Results - last 24 hr 06/13/22 06/14/22 06/14/22 13:12 06:35 06:35 WBC 8.5 RBC 5.56 Hgb 15.3 Hct 46.9 MCV 84.4 MCH 27.5 MCHC 32.6 RDW 14.6 Plt Count 220 MPV 9.6 Absolute Nucleated RBC 0.000 Nucleated RBC % (auto) 0.0 Sodium 134 L Potassium 4.7 Chloride 110 H Carbon Dioxide 22 Anion Gap 7 L BUN 16 Creatinine 0.77 Estim Creat Clear Calc 124.8 Estimated GFR > 60 Random Glucose 121 H Calcium 9.1 Troponin I High Sens 5.8 Procedures Date of Service Date of Service: 06/14/22
[2022-06-14] MEDS: Enoxaparin Sodium 40 MG/0.4 ML SYRINGE SUBCUT (15:50)
[2022-06-15 08:00] VITALS: BP 142/96; PULSE 101; RESP 20; TEMP 37.1; O2SAT 97
--- NOTE | 2022-06-15 08:53 | MHC.CM.PN ---
Patient is Covid (+); CM spoke with him over the phone at [phone]. 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 Home/self care is the goal and CM has initiated and will follow for dc planning. Patient's Sister/Maria E is the HCP and he has received Pfizer/Covid vax x2. PCP is from [facility] in [place].
[2022-06-15] MEDS: predniSONE 20 MG TABLET 40 MG PO (10:02)
[2022-06-15] MEDS: Metoprolol Tartrate 25 MG TABLET PO (10:02)
[2022-06-15] MEDS: 0.9 % Sodium Chloride Flush 3 ML SYRINGE IVFLUSH ×2 (10:02→16:58)
[2022-06-15] MEDS: dilTIAZem HCL 125 MG in 0.9 % Sodium Chloride 100 ML 10 MG IVCONT (10:12)
[2022-06-15 11:34] VITALS: BP 127/91; PULSE 100; RESP 20; TEMP 36.8; O2SAT 97
[2022-06-15] MEDS: Apixaban 5 MG TABLET PO ×2 (12:28→20:47)
--- NOTE | 2022-06-15 12:55 | HO.PM.IMPN ---
Subjective Subjective Date of Service: 06/15/22 Interval History: cc: sob, cough interval history: still with cough, sob Cardiovascular Cardiovascular: Reports no additional cardiovascular complaints Gastrointestinal Gastrointestinal: Reports no additional gastrointestinal complaints Physical Exam Vital Signs: Vital Signs: Last Vital Signs Temp 98.3 F 06/15/22 11:34 Pulse 100 06/15/22 11:34 Resp 20 06/15/22 11:34 BP 127/91 H 06/15/22 11:34 Pulse Ox 97 06/15/22 11:34 O2 Del Method 06/15/22 11:34 BMI result Body Mass Index 28.8 General: AO X 3, no acute distress Resp: CTA bilateral, no accessory muscles used CVS: S1,S2,Rapid irregular GI: soft, non tender, non distended Neuro: motor grossly intact, alert Psych: appropriate affect, appropriate insight Objective Data Active Medications Acetaminophen (Acetaminophen 325 Mg Tablet) 650 mg PO Q6H PRN PRN Reason: Pain, Mild (Pain Scale 1-3) Apixaban (Apixaban 5 Mg Tablet) 5 mg PO BID [facility] Last Admin: 06/15/22 12:28 Dose: 5 mg Documented By: ENMANUEL Benzonatate (Benzonatate 100 Mg Capsule) 200 mg PO TID PRN PRN Reason: cough Last Admin: 06/13/22 21:38 Dose: 200 mg Documented By: LEON Cefuroxime Axetil (Cefuroxime Axetil 500 Mg Tablet) 500 mg PO Q12H [facility] Last Admin: 06/15/22 10:02 Dose: 500 mg Documented By: ENMANUEL Diltiazem HCl 125 mg/ Sodium (Chloride) 125 mls @ 0 mls/hr IVCONT .Q0M [facility]; Protocol Last Titration: 06/15/22 12:28 Dose: 10 mg/hr, 10 mls/hr Documented By: ENMANUEL Levalbuterol HCl (Levalbuterol Hcl 1.25 Mg/0.5 Ml Vial.Neb) 1.25 mg INHALE Q3H PRN PRN Reason: Wheezing Metoprolol Tartrate (Metoprolol Tartrate 25 Mg Tablet) 25 mg PO TID [facility]; Protocol Last Admin: 06/15/22 10:02 Dose: 25 mg Documented By: ENMANUEL Ondansetron HCl (Ondansetron Hcl 4 Mg/2 Ml Vial) 4 mg IVPUSH Q8H PRN PRN Reason: Nausea and Vomiting Pharmacy Consult (Consult Rx Perform Med Rec) 1 each MISCELLANE ONCE PRN PRN Reason: Consult order Prednisone (Prednisone 20 Mg Tablet) 40 mg PO DAILY [facility] Last Admin: 06/15/22 10:02 Dose: 40 mg Documented By: ENMANUEL Sodium Chloride (0.9 % Sodium Chloride Flush 3 Ml Syringe) 3 ml IVFLUSH QSHIFT [facility] Last Admin: 06/15/22 10:02 Dose: 3 ml Documented By: ENMANUEL Labs CBC & Chem 7: 06/14/22 06:35 06/14/22 06:35 Microbiology Microbiology Results: Microbiology 06/13/22 10:29 Blood Culture - Preliminary Blood - Venous No growth after 48 hours. 06/13/22 10:29 Blood Culture - Preliminary Blood - Venous No growth after 48 hours. Assessment and Plan (1) Atrial fibrillation with rapid ventricular response: Status: Acute Plan This is a 51-year-old male with a past medical history of hypertension asthma, prior COVID pneumonia in 2019 presents to the hospital with 2 weeks of progressive shortness of breath.? His workup in the emergency room reveals new onset AFib with RVR.? He is COVID positive but not hypoxia. New onset AFib with RVR IV cardizem, metoprolol echo eliquis COVID without hypoxia monitor for now CTA with mild findings mild intermittent Asthma with acute exacerbation prednisone HTN hold bp meds while on cardizem drip Otitis media PO ceftin pt does not have severe sepsis Heavy intermittent alcohol use reports drinking 15 beers/daily on the weekends, but endorses last drink more than 1 month ago as he is trying to stop. Full Code DVT pptx -- eliquis requires continued hospitalization for management of a. fib with rvr (he remains on cardizem gtt) Quality Stroke Does the patient have a stroke diagnosis?: No VTE Prior VTE?: No VTE Risk Level:: Medical - moderate - high VTE Device Contraindication: Treatment Not Indicated VTE Drug Contraindication: Treatment Not Indicated
[2022-06-15 13:21] VITALS: RESP 18; O2SAT 96
--- NOTE | 2022-06-15 14:12 | PM.PNCARD ---
Subjective Subjective Date of Service: 06/15/22 <TATIANA Mckinnon - Last Filed: 06/15/22 14:22> 06/15/22 <Andre Pham MD - Last Filed: 06/15/22 17:10> Principal diagnosis: Afib, COVID <TATIANA Mckinnon - Last Filed: 06/15/22 14:22> Interval history: Seen at 1030. Today he reports intermittent cough, breathing comfortable at rest. No heart palpitations or chest discomfort. Echo not completed yet. IV Cardizem infusion, nurse about to increase dose to 10mg. Tele showing Afib, rates ranging 100-140s. <TATIANA Mckinnon - Last Filed: 06/15/22 14:22> Review of Systems Review of Systems as above <TATIANA Mckinnon - Last Filed: 06/15/22 14:22> Yes all other systems are reviewed and are negative <TATIANA Mckinnon - Last Filed: 06/15/22 14:22> Physical Exam Vital Signs: Last Vital Signs Temp 98.3 F 06/15/22 11:34 Pulse 100 06/15/22 11:34 Resp 18 06/15/22 13:21 BP 127/91 H 06/15/22 11:34 Pulse Ox 97 06/15/22 11:34 O2 Del Method 06/15/22 11:34 BMI result Body Mass Index 28.8 <TATIANA Mckinnon - Last Filed: 06/15/22 14:22> Const General: cooperative, comfortable and no acute distress <TATIANA Mckinnon - Last Filed: 06/15/22 14:22> Orientation/consciousness: patient oriented x3 <TATIANA Mckinnon - Last Filed: 06/15/22 14:22> Neck Neck: Yes normal visual inspection <TATIANA Mckinnon - Last Filed: 06/15/22 14:22> Resp Effort & Inspection: normal respiratory effort <TATIANA Mckinnon - Last Filed: 06/15/22 14:22> Auscultation: clear to auscultation bilaterally, no crackles, no rales, no rhonchi and wheezes <Keysha Barth DEBT MANAGEMENT COUNSELOR-C - Last Filed: 06/15/22 14:22> Cardio Jugular venous distension: no JVD <Keysha BarthKOKO-C - Last Filed: 06/15/22 14:22> Rate: tachycardic <Keysha BarthKOKO-C - Last Filed: 06/15/22 14:22> Rhythm: abnormal rhythm <Keysha Barth DEBT MANAGEMENT COUNSELOR-C - Last Filed: 06/15/22 14:22> Heart sounds: S1 normal heart sound present, S2 normal heart sound present, no gallops, no murmurs and no rubs <Keysha BarthKOKO-C - Last Filed: 06/15/22 14:22> GI Inspection: Yes normal to inspection <Keysha BarthKOKO-C - Last Filed: 06/15/22 14:22> Neuro General: patient oriented x3 <Keysha BarthKOKO-C - Last Filed: 06/15/22 14:22> Extrem General: Yes normal to inspection <Keysha BarthKOKO-C - Last Filed: 06/15/22 14:22> Psych Appearance: grossly normal <Keysha BarthKOKO-C - Last Filed: 06/15/22 14:22> Mental Status: mental status grossly normal <Keysha Barth DEBT MANAGEMENT COUNSELOR-C - Last Filed: 06/15/22 14:22> Speech and movement: Normal speech and movement present <Keysha BarthKOKO-C - Last Filed: 06/15/22 14:22> Objective Labs and Meds Result diagrams: : 06/14/22 06:35 06/14/22 06:35 <Keysha BarthKOKO-C - Last Filed: 06/15/22 14:22> Progress Note: A&P Assessment and plan (1) Atrial fibrillation with rapid ventricular response: Status: Acute <Keysha BarthROCKC - Last Filed: 06/15/22 14:22> Assessment and Plan: Hx HTN. Follows with Dr David Iniguez at [facility]. This admit came in with increased sob, asthma exacerbation, COVID +. Noted to have afib RVR. No report of palpitations. Unknown how long he has been in afib. No prior Hx. Being treated with heart rate control with Diltiazem drip and with Metoprolol po. Tele shows rates still not well controlled, ranging 100-140 this am. Will increase Metoprolol po to 50mg q 6 hr. Continue Diltiazem drip, titrate as needed for heart rate <100. Echocardiogram ordered to be done today. CHADSVASc score 1 ( htn). He admits to being a binge drinker, 15 beers on weekend. Anticoagulation to be used if NED CVR needed. We will follow. <TATIANA Mckinnon - Last Filed: 06/15/22 14:22> Hx HTN. Follows with Dr David Iniguez at [facility]. This admit came in with increased sob, asthma exacerbation, COVID +. Noted to have afib RVR. No report of palpitations. Unknown how long he has been in afib. No prior Hx. Being treated with heart rate control with Diltiazem drip and with Metoprolol po. Tele shows rates still not well controlled, ranging 100-140 this am. Will increase Metoprolol po to 50mg q 6 hr. Continue Diltiazem drip, titrate as needed for heart rate <100. Echocardiogram ordered to be done today. CHADSVASc score 1 ( htn). He admits to being a binge drinker, 15 beers on weekend. Anticoagulation to be used if NED CVR needed. We will follow. Patient seen and examined. Case discussed with Keysha Barth. Patient has rapid ventricular response to atrial fibrillation with no symptoms. His heart rate increased after discontinue IV Cardizem drip. At this point time continue to titrate Cardizem and increase metoprolol to 50 mg q.6 hours. Once the rate is better controlled slowly taper Cardizem drip rather than discontinuing it altogether. 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 Complete avoidance of alcohol was discussed. Continue to manage conservatively and as per hospitalist team for COVID. Continue supportive care. Echocardiogram is pending <Andre Pham MD - Last Filed: 06/15/22 17:10> (2) COVID-19: Status: Acute <TATIANA Mckinnon - Last Filed: 06/15/22 14:22> Assessment and Plan: Managed by hospitalist <TATIANA Mckinnon - Last Filed: 06/15/22 14:22> (3) Asthma exacerbation: Status: Acute <TATIANA Mckinnon - Last Filed: 06/15/22 14:22> Time Spent With Patient Time: Total time spent is greater than 50% in coordination of care (as documented) at patient's floor/unit and/or counseling patient: 20 <TATIANA Mckinnon - Last Filed: 06/15/22 14:22> Progress Note: Quality Stroke Does the patient have a stroke diagnosis?: No <TATIANA Mckinnon - Last Filed: 06/15/22 14:22> Procedures Date of Service Date of Service: 06/15/22 <TATIANA Mckinnon - Last Filed: 06/15/22 14:22>
[2022-06-15 16:00] VITALS: BP 127/88; PULSE 89; RESP 18; TEMP 37.1; O2SAT 98
[2022-06-15] MEDS: Metoprolol Tartrate 50 MG TABLET PO ×2 (16:58→20:47)
[2022-06-15 19:32] VITALS: BP 114/81; PULSE 89; RESP 18; TEMP 37; O2SAT 98
[2022-06-15 23:35] VITALS: BP 127/81; PULSE 86; RESP 18; TEMP 36.7; O2SAT 94
[2022-06-16] VITALS (7 sets, daily range): BP systolic 118–134; BP diastolic 79–95; PULSE 84–102; RESP 18–20; TEMP 36.2–37.4; O2SAT 94–98
[2022-06-16] MEDS: dilTIAZem HCL 125 MG in 0.9 % Sodium Chloride 100 ML IVCONT (05:19)
[2022-06-16 06:27] LABS: Hematocrit 49.3 % (42.0-52.0); Hemoglobin 16.3 g/dl (14.0-18.0); Mean Corpuscular HGB Conc 33.1 g/dl (31.0-36.0); Mean Corpuscular Hemoglobin 27.7 pg (27.0-33.0); Mean Corpuscular Volume 83.7 fL (80.0-98.0); Mean Platelet Volume 9.6 fL (9.4-12.4); Platelet Count 233 X10*3/uL (160-400); Red Blood Count 5.89 X10*6/uL (4.60-5.80); Red Cell Distribution Width 14.6 % (11.0-16.0); White Blood Count 11.4 X10*3/uL (4.8-10.8)
[2022-06-16 06:39] LABS: Anion Gap 12 (12-20); Blood Urea Nitrogen 18 mg/dL (9-16); Calcium 9.5 mg/dL (8.4-10.2); Carbon Dioxide 24 mmol/L (22-29); Chloride 110 mmol/L (96-108); Creatinine Clr Calc Pharmacy 126.5; Estimated Glomerular Filt Rate > 60; Glucose Fasting 96 mg/dL (60-99); Potassium 4.5 mmol/L (3.3-5.1); Sodium 141 mmol/L (135-145)
--- NOTE | 2022-06-16 07:00 | CA_ITS ---
Transthoracic Echocardiogram Patient (Last, First, Middle): Negrito Wooten, Gender: Male Date of : 1970 Age: 51 Procedure Date: 06/16/2022 Procedure Type: Transthoracic Echocardiogram Location: [facility] [place] Height: 175.26 cm Weight: 88.45 kg BSA: 2.04 m2 Heart Rate: bpm BP: 128 / 81 mmHg Carpet Technician: Referring MD: Andrew Ahumada MD Symptoms: a. fib rvr Study Quality: Fair ECG Rhythm: Atrial Fibrillation Conclusions: - Normal left ventricular cavity size. There is mildly increased left ventricular wall thickness. The left ventricular systolic function is severely decreased. The visually estimated ejection fraction is between 20-25%. - Mildly increased right ventricular cavity size. There is moderately decreased right ventricular systolic function. Findings Left Ventricle Normal left ventricular cavity size. There is mildly increased left ventricular wall thickness. The left ventricular systolic function is severely decreased. The visually estimated ejection fraction is between 20 25%. There is severe global hypokinesis. Diastolic function is indeterminate on the basis of available data. Right Ventricle Mildly increased right ventricular cavity size. There is moderately decreased right ventricular systolic function. Atria The left atrium is severely dilated. There is no evidence of interatrial shunt by color Doppler. Aortic Valve Normal aortic valve structure and function. There is no aortic valve stenosis. There is trace (trivial) aortic valve regurgitation. Mitral Valve There is mild mitral valve regurgitation. There is no mitral valve stenosis. Mild apical tethering of the mitral valve leaflets. Pulmonic Valve Normal pulmonic valve structure and function. There is trace pulmonic valve regurgitation. Tricuspid Valve Normal tricuspid valve structure and function. There is trace tricuspid valve regurgitation. Normal right atrial pressure. There is no evidence of pulmonary hypertension. Great Vessels All visible segments of the aorta are normal in size. Venous The inferior vena cava is normal in size and collapses greater than 50% with inspiration. Pericardium/Pleural There is no evidence of pericardial effusion. Measurements 2D Linear Measurements IVSd: 1.21 0.6-0.9/0.6-1.0 cm LVIDd: 5.18 3.9-5.3/4.2-5.9 cm LVIDd Index: 2.54 2.4-3.2/2.2-3.1 cm/m2 LVIDs: 3.81 2.0-3.6 cm LVPWd: 1.20 0.7-1.1 cm Ao Root: 3.70 2.1-3.5 cm LA Diam: 4.80 2.7-3.8/3.0-4.0 cm LAIDs Index: 2.35 1.5-2.3 cm/m2 LV Mass: 310.18 67-162/88-224 g LV Mass Index: 152.05 43-95/49-115 g/m2 LVOT Diam: 2.00 3.0+(-)1.3 cm 2D Systolic Function EF 4C: 29.90 >55% EF 2C: 39.70 >55% EF BiP: 32.00 >55% Mitral Valve MV Pk E: 1.06 MV Decel Time: 115.00 E'Lateral: 8.59 E'Medial: 9.25 E/E' Med: 11.50 E/E' Lat: 12.30 PHT: 34.00 MVA PHT: 6.47 Decel Ransom: 9.28 Aortic Valve AoV Pk Myron: 1.20 AoV Mn Myron: 0.80 AoV VTI: 0.23 AoV Pk Grad: 6.00 Aov Mn Grad: 3.00 MALCOLM Cont.VTI: 1.78 LVOT LVOT Pk Myron: 0.71 LVOT Mn Myron: 0.48 LVOT VTI: 0.13 LVOT Pk Grad: 2.00 LVOT Mn Grad: 1.00 LVOT Diam: 2.00 LVOT Area: 3.14 Diastolic Function MV Pk E: 1.06 E'Medial: 9.25 E/E' Med: 11.50 E' Laterial: 8.59 E/E' Lat: 12.30 Right Ventricle TAPSE (mm): 17.00 TVS' Myron: 10.00 Tricuspid Valve TR Pk Myron: 1.99 TR Pk Grad: 16.00 RA Press: 3.00 RVSP: 19.00 Great Vessels Aorta Ao Root-2D: 3.70 2.0-3.7 cm Pulmonary Valve PV Pk Myron: 0.70 Peak PV Grad: 2.00 Updated in Other Vendor System with Status of Final Raulito Bell MD electronically signed on 06/18/2022 9:57:28 AM with status of Final
[2022-06-16] MEDS: Metoprolol Tartrate 50 MG TABLET PO ×4 (08:06→20:39)
[2022-06-16] MEDS: predniSONE 20 MG TABLET 40 MG PO (08:06)
[2022-06-16] MEDS: Apixaban 5 MG TABLET PO ×2 (08:16→20:38)
--- NOTE | 2022-06-16 11:30 | PM.PNCARD ---
Subjective Subjective Date of Service: 06/16/22 <TATIANA Mckinnon - Last Filed: 06/16/22 11:59> 06/16/22 <Andre Pham MD - Last Filed: 06/16/22 12:21> Principal diagnosis: Afib, COVID <TATIANA Mckinnon - Last Filed: 06/16/22 11:59> Interval history: Seen at 0945. Today he reports feeling generally well. No heart palpitation, no chest discomfort. Has intermittent cough. Denies shortness of breath. Ambulates in room. Tele showing Afib, rates 80-90s. Diltiazem drip being weaned off. <TATIANA Mckinnon - Last Filed: 06/16/22 11:59> Review of Systems Review of Systems As above <TATIANA Mckinnon - Last Filed: 06/16/22 11:59> Yes all other systems are reviewed and are negative <TATIANA Mckinnon - Last Filed: 06/16/22 11:59> Physical Exam Vital Signs: Last Vital Signs Temp 97.1 F 06/16/22 08:00 Pulse 91 06/16/22 08:00 Resp 20 06/16/22 08:00 BP 129/79 06/16/22 08:00 Pulse Ox 94 06/16/22 08:00 O2 Del Method 06/16/22 08:00 BMI result Body Mass Index 28.8 <TATIANA Mckinnon - Last Filed: 06/16/22 11:59> Const General: cooperative, comfortable and no acute distress <TATIANA Mckinnon - Last Filed: 06/16/22 11:59> Orientation/consciousness: patient oriented x3 <TATIANA Mckinnon - Last Filed: 06/16/22 11:59> Neck Neck: Yes normal visual inspection <TATIANA Mckinnon Last Filed: 06/16/22 11:59> Resp Effort & Inspection: normal respiratory effort <TATIANA Mckinnon - Last Filed: 06/16/22 11:59> Auscultation: clear to auscultation bilaterally, no crackles, no rales, no rhonchi and wheezes <ROCK MckinnonC - Last Filed: 06/16/22 11:59> Cardio Jugular venous distension: no JVD <ROCK Mckinnon - Last Filed: 06/16/22 11:59> Rate: regular rate <ROCK Mckinnon - Last Filed: 06/16/22 11:59> Rhythm: abnormal rhythm <ROCK Mckinnon - Last Filed: 06/16/22 11:59> Heart sounds: S1 normal heart sound present, S2 normal heart sound present, no gallops, no murmurs and no rubs <ROCK Mckinnon - Last Filed: 06/16/22 11:59> GI Inspection: Yes normal to inspection <ROCK Mckinnon - Last Filed: 06/16/22 11:59> Neuro General: patient oriented x3 <ROCK Mckinnon - Last Filed: 06/16/22 11:59> Extrem General: Yes normal to inspection <ROCK Mckinnon - Last Filed: 06/16/22 11:59> Psych Appearance: grossly normal <ROCK Mckinnon - Last Filed: 06/16/22 11:59> Mental Status: mental status grossly normal <ROCK Mckinnon - Last Filed: 06/16/22 11:59> Speech and movement: Normal speech and movement present <ROCK Mckinnon - Last Filed: 06/16/22 11:59> Objective Labs and Meds Result diagrams: : 06/16/22 06:02 06/16/22 06:02 <Keysha Barth NP - Last Filed: 06/16/22 11:59> Lab results: Laboratory Results - last 24 hr 06/16/22 06/16/22 06:02 06:02 WBC 11.4 H RBC 5.89 H Hgb 16.3 Hct 49.3 MCV 83.7 MCH 27.7 MCHC 33.1 RDW 14.6 Plt Count 233 MPV 9.6 Absolute Nucleated RBC 0.000 Nucleated RBC % (auto) 0.0 Sodium 141 Potassium 4.5 Chloride 110 H Carbon Dioxide 24 Anion Gap 12 BUN 18 H Creatinine 0.76 Estim Creat Clear Calc 126.5 Estimated GFR > 60 Fasting Glucose 96 Calcium 9.5 Magnesium 2.0 <TATIANA Mckinnon - Last Filed: 06/16/22 11:59> Progress Note: A&P Assessment and plan (1) Atrial fibrillation with rapid ventricular response: Status: Acute <TATIANA Mckinnon - Last Filed: 06/16/22 11:59> Assessment and Plan: Hx HTN. Follows with Dr David Iniguez at [facility]. This admit came in with increased sob, asthma exacerbation, COVID +. Noted to have afib RVR. No report of palpitations. Unknown how long he has been in afib. No prior Hx. Being treated with heart rate control with Diltiazem drip and with Metoprolol po. Tele shows rates much better controlled today, mostly in 80s. Wean Diltiazem drip to off. Continue Metoprolol at current dose. Prior to discharge can be changed to Tartrate 100mg bid. Echocardiogram being completed this am - report is pending. CHADSVASc score 1 ( htn). He admits to being a binge drinker, 15 beers on weekend. Alcohol cessation reviewed with him. He has been started on Eliquis for Anticoagulation. 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 If heart rate remains well controlled off the Diltiazem, and echo shows no significant abnormalities, He may be able to be discharged later today. He will need to follow with Dr Iniguez at [facility] in near future. <TATIANA Mckinnon - Last Filed: 06/16/22 11:59> Hx HTN. Follows with Dr David Iniguez at [facility]. This admit came in with increased sob, asthma exacerbation, COVID +. Noted to have afib RVR. No report of palpitations. Unknown how long he has been in afib. No prior Hx. Being treated with heart rate control with Diltiazem drip and with Metoprolol po. Tele shows rates much better controlled today, mostly in 80s. Wean Diltiazem drip to off. Continue Metoprolol at current dose. Prior to discharge can be changed to Tartrate 100mg bid. Echocardiogram being completed this am - report is pending. CHADSVASc score 1 ( htn). He admits to being a binge drinker, 15 beers on weekend. Alcohol cessation reviewed with him. He has been started on Eliquis for Anticoagulation. 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 If heart rate remains well controlled off the Diltiazem, and echo shows no significant abnormalities, He may be able to be discharged later today. He will need to follow with Dr Iniguez at [facility] in near future. Patient seen and examined. Case discussed with Keysha. Could not review the echocardiogram finally because of technical Aeris. On preliminary review there appears to be reduced LV systolic function. Atrial fibrillation rate is much better control at this point time. Slowly taper Cardizem and continue metoprolol and switch she eventually to 100 mg b.i.d.. Continue full oral anticoagulation Eliquis. Currently not having any heart failure symptoms. Continue supportive care for COVID. Follow-up with his fitness and wellness coordinator in 3 weeks time and if he remains in atrial fibrillation at that point in time can consider rhythm control approach. Will sign of the case. Thank you for allowing me to partake in his care <Andre Pham MD - Last Filed: 06/16/22 12:21> (2) COVID-19: Status: Acute <TATIANA Mckinnon - Last Filed: 06/16/22 11:59> Assessment and Plan: Managed by hospitalist <TATIANA Mckinnon - Last Filed: 06/16/22 11:59> (3) Asthma exacerbation: Status: Acute <TATIANA Mckinnon Last Filed: 06/16/22 11:59> Time Spent With Patient Time: Total time spent is greater than 50% in coordination of care (as documented) at patient's floor/unit and/or counseling patient: 22 <TATIANA Mckinnon Last Filed: 06/16/22 11:59> Progress Note: Quality Stroke Does the patient have a stroke diagnosis?: No <TATIANA Mckinnon Last Filed: 06/16/22 11:59> Procedures Date of Service Date of Service: 06/16/22 <TATIANA Mckinnon - Last Filed: 06/16/22 11:59>
--- NOTE | 2022-06-16 11:33 | P.PNIM_ITS ---
Subjective Subjective Date of Service: 06/16/22 Interval History: cc: sob, cough interval history: somehwat better today Cardiovascular Cardiovascular: Reports no additional cardiovascular complaints Gastrointestinal Gastrointestinal: Reports no additional gastrointestinal complaints Physical Exam Vital Signs: Vital Signs: Last Vital Signs Temp 97.1 F 06/16/22 08:00 Pulse 91 06/16/22 08:00 Resp 20 06/16/22 08:00 BP 129/79 06/16/22 08:00 Pulse Ox 94 06/16/22 08:00 O2 Del Method 06/16/22 08:00 BMI result Body Mass Index 28.8 Const: General: cooperative, comfortable and no acute distress Orientation/consciousness: patient oriented x3 Neck: Neck: Yes normal visual inspection Resp: Effort & Inspection: normal respiratory effort Auscultation: clear to auscultation bilaterally, no crackles, no rales, no rhonchi and wheezes Cardio: Jugular venous distension: no JVD Rate: tachycardic Rhythm: abnormal rhythm Heart sounds: S1 normal heart sound present, S2 normal heart sound present, no gallops, no murmurs and no rubs GI: Inspection: Yes normal to inspection Neuro: General: patient oriented x3 Extrem: General: Yes normal to inspection Psych: Appearance: grossly normal Mental Status: mental status grossly normal Speech and movement: Normal speech and movement present Objective Data Active Medications Acetaminophen (Acetaminophen 325 Mg Tablet) 650 mg PO Q6H PRN PRN Reason: Pain, Mild (Pain Scale 1-3) Apixaban (Apixaban 5 Mg Tablet) 5 mg PO BID [facility] Last Admin: 06/16/22 08:16 Dose: 5 mg Documented By: ENMANUEL Benzonatate (Benzonatate 100 Mg Capsule) 200 mg PO TID PRN PRN Reason: cough Last Admin: 06/13/22 21:38 Dose: 200 mg Documented By: LEON Cefuroxime Axetil (Cefuroxime Axetil 500 Mg Tablet) 500 mg PO Q12H [facility] Last Admin: 06/16/22 08:06 Dose: 500 mg Documented By: ENMANUEL Diltiazem HCl 125 mg/ Sodium (Chloride) 125 mls @ 0 mls/hr IVCONT .Q0M [facility]; Protocol Last Titration: 06/16/22 11:14 Dose: 0 mg/hr, 0 mls/hr Documented By: ENMANUEL Levalbuterol HCl (Levalbuterol Hcl 1.25 Mg/0.5 Ml Vial.Neb) 1.25 mg INHALE Q3H PRN PRN Reason: Wheezing Last Admin: 06/15/22 13:20 Dose: 1.25 mg Documented By: AMOS Metoprolol Tartrate (Metoprolol Tartrate 50 Mg Tablet) 50 mg PO QID [facility]; Protocol Last Admin: 06/16/22 08:06 Dose: 50 mg Documented By: ENMANUEL Ondansetron HCl (Ondansetron Hcl 4 Mg/2 Ml Vial) 4 mg IVPUSH Q8H PRN PRN Reason: Nausea and Vomiting Pharmacy Consult (Consult Rx Perform Med Rec) 1 each MISCELLANE ONCE PRN PRN Reason: Consult order Prednisone (Prednisone 20 Mg Tablet) 40 mg PO DAILY [facility] Last Admin: 06/16/22 08:06 Dose: 40 mg Documented By: ENMANUEL Sodium Chloride (0.9 % Sodium Chloride Flush 3 Ml Syringe) 3 ml IVFLUSH QSHIFT [facility] Last Admin: 06/16/22 09:29 Dose: Not Given Documented By: ENMANUEL Non-Admin Reason: IV Running Labs CBC & Chem 7: 06/16/22 06:02 06/16/22 06:02 Labs: Laboratory Results - last 24 hr 06/16/22 06/16/22 06:02 06:02 MCV 83.7 MCH 27.7 MCHC 33.1 RDW 14.6 Plt Count 233 MPV 9.6 Absolute Nucleated RBC 0.000 Nucleated RBC % (auto) 0.0 Anion Gap 12 Estim Creat Clear Calc 126.5 Estimated GFR > 60 Fasting Glucose 96 Calcium 9.5 Magnesium 2.0 Microbiology Microbiology Results: Microbiology 06/13/22 10:29 Blood Culture - Preliminary Blood - Venous No growth after 48 hours. 06/13/22 10:29 Blood Culture - Preliminary Blood - Venous No growth after 48 hours. Assessment and Plan (1) Atrial fibrillation with rapid ventricular response: Status: Acute Plan This is a 51-year-old male with a past medical history of hypertension asthma, prior COVID pneumonia in 2019 presents to the hospital with 2 weeks of pr ogressive shortness of breath.? His workup in the emergency room reveals new onset AFib with RVR.? He is COVID positive but not hypoxia. New onset AFib with RVR metoprolol increased to 50mg qid weanign off cardizem follow up echo [place] COVID without hypoxia monitor for now CTA with mild findings mild intermittent Asthma with acute exacerbation prednisone HTN hold bp meds to make room for rate control meds Otitis media PO ceftin pt does not have severe sepsis Heavy intermittent alcohol use reports drinking 15 beers/daily on the weekends, but endorses last drink more than 1 month ago as he is trying to stop. Full Code DVT pptx -- nat[place] requires continued hospitalization for management of a. fib with rvr Quality Stroke Does the patient have a stroke diagnosis?: No VTE Prior VTE?: No VTE Risk Level:: Medical - moderate - high VTE Device Contraindication: Treatment Not Indicated VTE Drug Contraindication: Treatment Not Indicated
[2022-06-16] MEDS: 0.9 % Sodium Chloride Flush 3 ML SYRINGE IVFLUSH ×2 (15:48→20:41)
[2022-06-16] MEDS: Benzonatate 100 MG CAPSULE 200 MG PO (20:39)
[2022-06-17 04:00] VITALS: BP 137/83; PULSE 59; RESP 20; TEMP 36.5; O2SAT 97
[2022-06-17 05:53] LABS: Hematocrit 51.9 % (42.0-52.0); Hemoglobin 17.2 g/dl (14.0-18.0); Mean Corpuscular HGB Conc 33.1 g/dl (31.0-36.0); Mean Corpuscular Hemoglobin 28.2 pg (27.0-33.0); Mean Corpuscular Volume 85.1 fL (80.0-98.0); Mean Platelet Volume 9.6 fL (9.4-12.4); Platelet Count 224 X10*3/uL (160-400); Red Cell Distribution Width 14.5 % (11.0-16.0); White Blood Count 9.6 X10*3/uL (4.8-10.8)
[2022-06-17 06:12] LABS: Anion Gap 13 (12-20); Blood Urea Nitrogen 19 mg/dL (9-16); Calcium 9.5 mg/dL (8.4-10.2); Carbon Dioxide 26 mmol/L (22-29); Chloride 107 mmol/L (96-108); Creatinine Clr Calc Pharmacy 95.2; Estimated Glomerular Filt Rate > 60; Glucose Fasting 149 mg/dL (60-99); Sodium 142 mmol/L (135-145)
[2022-06-17 07:20] VITALS: BP 130/89; PULSE 89; RESP 14; TEMP 36.6; O2SAT 96
[2022-06-17] MEDS: Apixaban 5 MG TABLET PO ×2 (09:20→20:23)
[2022-06-17] MEDS: Metoprolol Tartrate 50 MG TABLET PO ×4 (09:20→20:23)
[2022-06-17] MEDS: 0.9 % Sodium Chloride Flush 3 ML SYRINGE IVFLUSH ×3 (09:20→20:24)
[2022-06-17] MEDS: predniSONE 20 MG TABLET 40 MG PO (09:20)
[2022-06-17] MEDS: Benzonatate 100 MG CAPSULE 200 MG PO ×2 (10:09→20:23)
--- NOTE | 2022-06-17 11:17 | P.PNIM_ITS ---
Subjective Subjective Date of Service: 06/17/22 Interval History: cc: sob, cough interval history: somehwat better today Cardiovascular Cardiovascular: Reports no additional cardiovascular complaints Gastrointestinal Gastrointestinal: Reports no additional gastrointestinal complaints Physical Exam Vital Signs: Vital Signs: Last Vital Signs Temp 97.8 F 06/17/22 07:20 Pulse 89 06/17/22 07:20 Resp 14 06/17/22 07:20 BP 130/89 06/17/22 07:20 Pulse Ox 96 06/17/22 07:20 O2 Del Method 06/17/22 07:20 BMI result Body Mass Index 28.8 Const: General: cooperative, comfortable and no acute distress Orientation/consciousness: patient oriented x3 Neck: Neck: Yes normal visual inspection Resp: Effort & Inspection: normal respiratory effort Auscultation: clear to auscultation bilaterally, no crackles, no rales, no rhonchi and wheezes Cardio: Jugular venous distension: no JVD Rate: tachycardic Rhythm: abnormal rhythm Heart sounds: S1 normal heart sound present, S2 normal heart sound present, no gallops, no murmurs and no rubs GI: Inspection: Yes normal to inspection Neuro: General: patient oriented x3 Extrem: General: Yes normal to inspection Psych: Appearance: grossly normal Mental Status: mental status grossly normal Speech and movement: Normal speech and movement present Objective Data Active Medications Acetaminophen (Acetaminophen 325 Mg Tablet) 650 mg PO Q6H PRN PRN Reason: Pain, Mild (Pain Scale 1-3) Apixaban (Apixaban 5 Mg Tablet) 5 mg PO BID [facility] Last Admin: 06/17/22 09:20 Dose: 5 mg Documented By: MYAH Benzonatate (Benzonatate 100 Mg Capsule) 200 mg PO TID PRN PRN Reason: cough Last Admin: 06/17/22 10:09 Dose: 200 mg Documented By: MYAH Cefuroxime Axetil (Cefuroxime Axetil 500 Mg Tablet) 500 mg PO Q12H [facility] Last Admin: 06/17/22 09:20 Dose: 500 mg Documented By: MYAH Digoxin (Digoxin 0.5 Mg/2 Ml Ampul) 0.25 mg IVPUSH Q6H [facility] Stop: 06/17/22 17:16 Levalbuterol HCl (Levalbuterol Hcl 1.25 Mg/0.5 Ml Vial.Neb) 1.25 mg INHALE Q3H PRN PRN Reason: Wheezing Last Admin: 06/16/22 16:12 Dose: 1.25 mg Documented By: TANNER Metoprolol Tartrate (Metoprolol Tartrate 50 Mg Tablet) 50 mg PO QID [facility]; Protocol Last Admin: 06/17/22 09:20 Dose: 50 mg Documented By: MYAH Ondansetron HCl (Ondansetron Hcl 4 Mg/2 Ml Vial) 4 mg IVPUSH Q8H PRN PRN Reason: Nausea and Vomiting Pharmacy Consult (Consult Rx Perform Med Rec) 1 each MISCELLANE ONCE PRN PRN Reason: Consult order Prednisone (Prednisone 20 Mg Tablet) 40 mg PO DAILY [facility] Last Admin: 06/17/22 09:20 Dose: 40 mg Documented By: MYAH Sodium Chloride (0.9 % Sodium Chloride Flush 3 Ml Syringe) 3 ml IVFLUSH QSHIFT [facility] Last Admin: 06/17/22 09:20 Dose: 3 ml Documented By: MYAH Labs CBC & Chem 7: 06/17/22 05:38 06/17/22 05:38 Labs: Laboratory Results - last 24 hr 06/17/22 06/17/22 05:38 05:38 MCV 85.1 MCH 28.2 MCHC 33.1 RDW 14.5 Plt Count 224 MPV 9.6 Absolute Nucleated RBC 0.000 Nucleated RBC % (auto) 0.0 Anion Gap 13 Estim Creat Clear Calc 95.2 Estimated GFR > 60 Fasting Glucose 149 H Calcium 9.5 Magnesium 2.0 Assessment and Plan (1) Atrial fibrillation with rapid ventricular response: Status: Acute Plan This is a 51-year-old male with a past medical history of hypertension asthma, prior COVID pneumonia in 2019 presents to the hospital with 2 weeks of progressive shortness of breath.? His workup in the emergency room reveals new onset AFib with RVR.? He is COVID positive but not hypoxia. New onset AFib with RVR metoprolol increased to 50mg qid now off cardizem still tachycardic, will start dig follow up echo eliquis COVID without hypoxia monitor for now CTA with mild findings mild intermittent Asthma with acute exacerbation prednisone HTN hold bp meds to make room for rate control meds Otitis media PO ceftin pt does not have severe sepsis Heavy intermittent alcohol use reports drinking 15 beers/daily on the weekends, but endorses last drink more than 1 month ago as he is trying to stop. Full Code DVT pptx -- eliquis requires continued hospitalization for management of a. fib with rvr Quality Stroke Does the patient have a stroke diagnosis?: No VTE Prior VTE?: No VTE Risk Level:: Medical - moderate - high VTE Device Contraindication: Treatment Not Indicated VTE Drug Contraindication: Treatment Not Indicated
[2022-06-17 11:35] VITALS: BP 146/89; PULSE 58; RESP 16; TEMP 36.2; O2SAT 98
--- NOTE | 2022-06-17 11:43 | MHC.CM.PN ---
Discharge Plan Home self -care. Patient will arrange for a ride home @ discharge. Per MD rounds, no dc today. Patient continues in AFIB. Cardiology is following the patient for AFIB management. CM will continue to follow.
[2022-06-17] MEDS: Digoxin 0.5 MG/2 ML AMPUL 0.25 MG IVPUSH ×2 (12:29→17:01)
[2022-06-17 15:13] VITALS: BP 127/90; PULSE 78; RESP 17; TEMP 36.2; O2SAT 95
[2022-06-17 19:08] VITALS: BP 127/85; PULSE 88; RESP 16; TEMP 36.4; O2SAT 94
[2022-06-17 23:29] VITALS: BP 115/68; PULSE 60; RESP 15; TEMP 36.4; O2SAT 93
[2022-06-18 03:19] VITALS: BP 132/99; PULSE 104; RESP 16; TEMP 36.6; O2SAT 92
[2022-06-18 06:20] LABS: Hemoglobin 18.2 g/dl (14.0-18.0); Mean Corpuscular HGB Conc 33.1 g/dl (31.0-36.0); Mean Corpuscular Volume 84.6 fL (80.0-98.0); Mean Platelet Volume 9.6 fL (9.4-12.4); Platelet Count 242 X10*3/uL (160-400); Red Cell Distribution Width 14.5 % (11.0-16.0); White Blood Count 10.3 X10*3/uL (4.8-10.8)
[2022-06-18 06:41] LABS: Anion Gap 12 (12-20); Blood Urea Nitrogen 19 mg/dL (9-16); Calcium 9.7 mg/dL (8.4-10.2); Carbon Dioxide 30 mmol/L (22-29); Chloride 106 mmol/L (96-108); Creatinine Clr Calc Pharmacy 100.1; Estimated Glomerular Filt Rate > 60; Glucose Fasting 90 mg/dL (60-99); Potassium 4.7 mmol/L (3.3-5.1); Sodium 143 mmol/L (135-145)
[2022-06-18 07:58] VITALS: BP 117/89; PULSE 106; RESP 20; TEMP 36.7; O2SAT 96
[2022-06-18] MEDS: Metoprolol Tartrate 100 MG TABLET PO (08:59)
[2022-06-18] MEDS: predniSONE 20 MG TABLET 40 MG PO (08:59)
[2022-06-18] MEDS: 0.9 % Sodium Chloride Flush 3 ML SYRINGE IVFLUSH (08:59)
[2022-06-18] MEDS: Apixaban 5 MG TABLET PO (08:59)
--- NOTE | 2022-06-18 11:28 | PM.DS ---
DS: Providers Provider Date of Service: 06/18/22 Date of admission: 06/13/22 12:49 Primary care physician: Brit Velasquez MD Consults: 06/13/22 12:50 Consult to Cardiology Routine Consulting Provider: Raulito Bell Reason for consultation: new onset a fib with rvr DS: Diagnosis Discharge Diagnosis (1) Atrial fibrillation with rapid ventricular response: Status: Acute DS: Summary Hospital Course Hospital Course: from initial hpi: Chief Complaint: shortness of breath This is a 51-year-old male with a past medical history of hypertension, prior COVID pneumonia in 2019 and asthma who presents to the emergency room with complaints of shortness of breath which has progressed over the last 2 weeks.? The patient reports that initially he felt that this was due to an exacerbation of asthma and so he uses inhalers.? Reports that initially the inhalers helped, however as the days progressed, he was continually feeling short of breath and reports that this was different than his usual asthma.? He denies feeling palpitations but states that there was something different in his chest.? He denies any anginal symptoms.? He reports that because his inhalers were not working any longer he decided to come to the emergency room for further workup.? He denies any fevers or chills.? He reports a nonproductive cough.? He denies any sick contacts.? He reports being vaccinated for COVID with 2 doses of the mRNA vaccine, did not get a booster. Upon arrival to the emergency room, patient was noted to be in new onset AFib with RVR.? His heart rates were initially in the 120s.? He was given IV metoprolol with improvement is in his rates.? Subsequently he was given oral metoprolol.? However the the effect is only short lasting and his heart rates are declining back into the 140s.? He was given IV Solu-Medrol as well as updrafts.? He was given empiric IV ceftriaxone. Patient is seen and examined the emergency room.? His heart rates remain in the 140s.? A Cardizem drip will be initiated and he will be admitted for further care. hospital course: Patient was admitted for new onset atrial fibrillation with rapid ventricular response. His metoprolol was titrated up to 100 mg b.i.d. at time of discharge. He was tapered off IV Cardizem. He was started on digoxin. Echo did show some reduced EF. He was started on apixaban. He will follow up with Cardiology as outpatient. Heart rate is better controlled now. For his COVID he was not hypoxic, but due to wheezing and mild intermittent asthma with acute exacerbation he was treated with prednisone and will continue 5 more days. For his hypertension his amlodipine was held to make room for rate controlling medications. Patient was treated with cefuroxime for otitis media. Patient noted to have heavy intermittent alcohol use. He is advised to stop. Time Spent with Patient Time attestation: Total time spent providing and/or coordinating discharge services: Discharge coordination time: Greater than 30 minutes Quality: Safe Use of Opioids Does Pt have an Active Cancer Diagnosis on the Problem List?: No Quality: Stroke Does the patient have a stroke diagnosis?: No Physical Exam Vital Signs: Vital Signs: Last Vital Signs Temp 98.1 F 06/18/22 07:58 Pulse 106 H 06/18/22 07:58 Resp 20 06/18/22 07:58 BP 117/89 06/18/22 07:58 Pulse Ox 96 06/18/22 07:58 O2 Del Method 06/18/22 07:58 BMI result Body Mass Index 28.8 Const: General: cooperative, comfortable and no acute distress Orientation/consciousness: patient oriented x3 Neck: Neck: Yes normal visual inspection Resp: Effort & Inspection: normal respiratory effort Auscultation: clear to auscultation bilaterally, no crackles, no rales, no rhonchi and wheezes Cardio: Jugular venous distension: no JVD Rate: tachycardic Rhythm: abnormal rhythm Heart sounds: S1 normal heart sound present, S2 normal heart sound present, no gallops, no murmurs and no rubs GI: Inspection: Yes normal to inspection Neuro: General: patient oriented x3 Extrem: General: Yes normal to inspection Psych: Appearance: grossly normal Mental Status: mental status grossly normal Speech and movement: Normal speech and movement present DS: Data Data Completed and Pending Labs on day of discharge: Laboratory Results - last 24 hr 06/18/22 06/18/22 06:09 06:09 WBC 10.3 RBC 6.50 H Hgb 18.2 H Hct 55.0 H MCV 84.6 MCH 28.0 MCHC 33.1 RDW 14.5 Plt Count 242 MPV 9.6 Absolute Nucleated RBC 0.000 Nucleated RBC % (auto) 0.0 Sodium 143 Potassium 4.7 Chloride 106 Carbon Dioxide 30 H Anion Gap 12 BUN 19 H Creatinine 0.96 Estim Creat Clear Calc 100.1 Estimated GFR > 60 Fasting Glucose 90 Calcium 9.7 Preliminary micro results at discharge 06/13/22 10:29 Blood Culture - Preliminary Blood - Venous No growth after 48 hours. 06/13/22 10:29 Blood Culture - Preliminary Blood - Venous No growth after 48 hours. Discharge Plan Discharge Anticipated Discharge Date/Time: 06/18/22 11:26 Patient Disposition: Home, Self-Care Discharge Diagnosis: covid, asthma, afib Referrals: Brit Velasquez MD [Primary Care Provider] - 1 Week Discharge Medications: New metoprolol tartrate 100 mg Tablet 100 mg PO BID Qty: 60 0RF Protocol: Hold for SBP/HR < HOLD for SBP < : 90 HOLD for HR < : 60 prednisone 20 mg Tablet 40 mg PO DAILY Qty: 10 0RF Eliquis 5 mg Tablet 5 mg PO BID Qty: 60 0RF digoxin 125 mcg (0.125 mg) tablet 125 mcg PO DAILY Qty: 30 0RF Continued albuterol sulfate 90 mcg/actuation HFA aerosol inhaler 1 puff inhalation Q6H PRN (Reason: Shortness Of Breath Or Wheezing) Discontinued amlodipine 10 mg Tablet 10 mg PO DAILY Label Comments: states I was more focused on other things carvedilol 12.5 mg tablet 1 tab PO BID Discharge Orders: Discharge Order (Routine); Ordered 06/18/22 Ordered By: Lefty Palacio Diet: Advance to usual diet Activity on Discharge: As tolerated Stand Alone Forms: Patient Portal Discharge page Care Plan Goals: recovery Health Concerns: afib, covid Plan of Treatment: start meds as prescribed, follow up with cardiology Assessment: see above
--- NOTE | 2022-06-18 11:35 | MHC.CM.PN ---
Patient has been medically cleared for dc to home today, self care.
[2022-06-18 12:00] VITALS: BP 145/70; PULSE 102; RESP 16; TEMP 36.4; O2SAT 96
== END 2022-06-18 13:56 | disposition home or self-care (01) | DRG 201 ==
LOC: HO.ED 11:17 → HO.EDOVER 12:56 → HO.IMC 15:46
PROVIDERS: Physician Assistant Medical; Admitting Provider Family Medicine; Emergency Provider Emergency Medicine; PCP Family Medicine; Visit Provider Internal Medicine
DX: I48.91 Unspecified atrial fibrillation (principal); U07.1 COVID-19; J45.901 Unspecified asthma with (acute) exacerbation; H66.91 Otitis media, unspecified, right ear; I10 Essential (primary) hypertension; Z86.16 Personal history of COVID-19; Z88.0 Allergy status to penicillin; Z79.01 Long term (current) use of anticoagulants; Z79.899 Other long term (current) drug therapy
CPT/HCPCS: 0241U; 36415; 71045; 80048; 80053; 81001; 83605; 83735; 83880; 84484; 85025; 85027; 85610; 87040; 93005; 93306; 94640; 99285; J0696; J1160; J1650; J2930; J3475; Q9957

== ENCOUNTER 2023-06-28 22:37 | Emergency (ER) | payer BC, SELFPAY ==
--- NOTE | ~2023-06-28 | CT_ITS ---
EXAMINATION: NONCONTRAST HEAD CT NONCONTRAST CERVICAL SPINE CT INDICATION INFORMATION: Fall. COMPARISON: 12/28/2022 TECHNIQUE: Separate noncontrast CT examinations of the head and cervical spine were performed. Coronal and sagittal images were created for each examination at the technologist workstation. This CT examination was performed using dose optimization techniques as appropriate, variously including the following: *Automated exposure control *Adjustment of mA and/or kV according to patient size (this includes techniques or standardized protocols for targeted exams where dose is matched to indication/reason for exam; i.e. extremities or head) *Use of iterative reconstruction technique DLP: 1401 mGy-cm FINDINGS: Head: There is no evidence of acute intracranial hemorrhage or territorial infarction. No abnormal mass effect or midline shift is seen. Medley to white matter differentiation is well preserved. No extra-axial fluid collections are identified. No hydrocephalus. No significant volume loss. There is no abnormal attenuation within the brain parenchyma. Within left parietal occipital subgaleal hematoma. Calvarium and skull base intact.. The mastoid air cells and visualized portions of the paranasal sinuses are well aerated. Cervical spine: There is anatomic alignment of the vertebral bodies and posterior elements. The atlantoaxial and atlantooccipital articulations are intact. Vertebral body heights are maintained. Mild loss of disc space height and small endplate osteophytes at C5-C6 and C6-C7. No evidence of acute fracture. No prevertebral soft tissue swelling. Visualized portions of the lung apices are unremarkable. The thyroid gland is unremarkable. CT/CT head/brain wo IV con IMPRESSION: * No acute intracranial findings. * No acute fracture or malalignment of the cervical spine.
--- NOTE | ~2023-06-28 | CT_ITS ---
EXAMINATION: NONCONTRAST HEAD CT NONCONTRAST CERVICAL SPINE CT INDICATION INFORMATION: Fall. COMPARISON: 12/28/2022 TECHNIQUE: Separate noncontrast CT examinations of the head and cervical spine were performed. Coronal and sagittal images were created for each examination at the technologist workstation. This CT examination was performed using dose optimization techniques as appropriate, variously including the following: *Automated exposure control *Adjustment of mA and/or kV according to patient size (this includes techniques or standardized protocols for targeted exams where dose is matched to indication/reason for exam; i.e. extremities or head) *Use of iterative reconstruction technique DLP: 1401 mGy-cm FINDINGS: Head: There is no evidence of acute intracranial hemorrhage or territorial infarction. No abnormal mass effect or midline shift is seen. Medley to white matter differentiation is well preserved. No extra-axial fluid collections are identified. No hydrocephalus. No significant volume loss. There is no abnormal attenuation within the brain parenchyma. Within left parietal occipital subgaleal hematoma. Calvarium and skull base intact.. The mastoid air cells and visualized portions of the paranasal sinuses are well aerated. Cervical spine: There is anatomic alignment of the vertebral bodies and posterior elements. The atlantoaxial and atlantooccipital articulations are intact. Vertebral body heights are maintained. Mild loss of disc space height and small endplate osteophytes at C5-C6 and C6-C7. No evidence of acute fracture. No prevertebral soft tissue swelling. Visualized portions of the lung apices are unremarkable. The thyroid gland is unremarkable. CT/CT cervical spine wo IV con IMPRESSION: * No acute intracranial findings. * No acute fracture or malalignment of the cervical spine.
[2023-06-28 22:49] VITALS: BP 153/101; PULSE 91; RESP 20; TEMP 36.4; O2SAT 98; BMI 29.5
--- NOTE | 2023-06-29 02:32 | ED.FALL ---
HPI - Fall General Chief Complaint: Fall Stated Complaint: head inj s/p fall Time Seen by Provider: 06/29/23 02:03 Source: patient Mode of arrival: ambulatory Limitations: no limitations History of Present Illness HPI Narrative: 52 yo male with PMH of afib on eliquis, asthma, HTN, CHF, states he was drinking tried to get up into his truck and had a sharp shoulder pain in R shoulder, dealing with pinched nerve in shoulder this happened Wednesday. He denies LOC. He now comes in and wants to make sure everything is okay. complaint: fall Onset (ago): day(s) (Wednesday) Fall from: standing Fall witnessed: no Place fall occurred: street Loss of consciousness: none Symptoms prior to fall: none Context: tripped/slipped Location of injury: head Severity: mild Quality: dull Associated symptoms (after fall): denies Related Data Home Medications Medication Instructions Recorded Confirmed albuterol sulfate 90 mcg/actuation 1 puff inhalation Q6H PRN 06/13/22 06/13/22 aerosol inhaler Shortness Of Breath Or Wheezing Previous Rx's Medication Instructions Recorded apixaban 5 mg tablet (Eliquis) 5 mg PO BID #60 tabs 06/18/22 digoxin 125 mcg (0.125 mg) tablet 125 mcg PO DAILY #30 tabs 06/18/22 metoprolol tartrate 100 mg tablet 100 mg PO BID #60 tabs 06/18/22 prednisone 20 mg tablet 40 mg (2 x 20 mg) PO DAILY #10 tabs 06/18/22 Allergies Allergy/AdvReac Type Severity Reaction Status Date / Time Penicillins [PENICILLINS] Allergy Mild HIVES Verified 06/13/22 08:35 Review of Systems Review of Systems: Constitutional : No Fever, No Chills, No Fatigue Cardiovascular : No Chest Pain, No SOB, No Dyspnea on Exertion Respiratory : No Cough, No Sputum Gastrointestinal : No Nausea, No Vomiting, No Diarrhea, No abdominal Pain Genitourinary : No Dysuria, No Urinary Frequency, No Hematuria, Musculoskeletal : No joint pain, No Myalgias, No Joint Swelling Skin : No Skin Lesions, No rash, pos laceration Neuro : No Weakness, No Numbness, No Dizziness, no Headache All other systems reviewed and are negative PMFSH Past Medical History Attestation statement: The following information was validated with the patient. Source: old records reviewed Medical History No known health problems Hypertension Asthma Surgical History History of ear surgery Social History Social History Household Members: Family Housing: Apartment Do you presently have visiting nurse or other home services: No Alcohol intake: current Comment: coughing improved Patient Tobacco Use Status: Never used Tobacco Advance Directives: No Advance Directives Information Provided: Yes service: Yes Current occupational status: employed Physical Exam Vital Signs: Vital Signs: Last Vital Signs Temp 97.6 F 06/28/23 22:49 Pulse 91 06/28/23 22:49 Resp 20 06/28/23 22:49 BP 153/101 H 06/28/23 22:49 Pulse Ox 98 06/28/23 22:49 O2 Del Method Room Air 06/28/23 22:49 BMI result Body Mass Index 29.5 Appearance: Alert. Oriented X3. No acute distress. Eyes: Pupils equal, round and reactive to light. ENT: Pharynx normal. old abrasion on back of scalp Neck: Normal inspection. Neck supple. CVS: Normal heart rate and rhythm. Pulses normal. Respiratory: No respiratory distress. Breath sounds normal. Abdomen: Soft and nontender. Skin: Skin warm and dry. Normal skin color. Normal skin turgor. Extremities: No lower extremity edema. No calf ttp Neuro: Oriented X 3. No motor deficit. No sensory deficit. Medical Decision Making Medical Decision Making MDM Narrative: 52 yo male with PMH of afib on eliquis, asthma, HTN, CHF here s/p fall after ETOH - hit head on eliquis he is GCS 15. At this time will need CT head and cspine denies any other trauma. Differential Diagnosis Differential Diagnoses: The differential diagnosis associated with the presentation includes abrasion, head injury, SDH Admission/Observation Consideration of admission/observation: Escalation of care including admission/observation considered GCS 15 stable for DC Independent Interpretation I performed an independent interpretation of an: CT Scan (no acute trauma) Radiology Impression Discussion of test interpretation with radiology: I have reviewed the radiologist's reading. External Record Review External record reviewed: Inpatient record Discharge Plan Discharge Clinical Impression: Abrasion Head injury Qualifiers: Encounter type: initial encounter Qualified Code(s): S09.90XA - Unspecified injury of head, initial encounter Patient Disposition: Home, Self-Care Instructions: Head Injury (ED), Abrasion (ED) Additional Instructions: no acute trauma to head or neck. keep abrasion clean and dry - monitor for redness, drainage, fevers return for vomiting, confusion, severe headaches Prescriptions: No Action albuterol sulfate 90 mcg/actuation HFA aerosol inhaler 1 puff inhalation Q6H PRN (Reason: Shortness Of Breath Or Wheezing) metoprolol tartrate 100 mg Tablet 100 mg PO BID Qty: 60 0RF Protocol: Hold for SBP/HR < HOLD for SBP < : 90 HOLD for HR < : 60 prednisone 20 mg Tablet 40 mg PO DAILY Qty: 10 0RF Eliquis 5 mg Tablet 5 mg PO BID Qty: 60 0RF digoxin 125 mcg (0.125 mg) tablet 125 mcg PO DAILY Qty: 30 0RF Stand Alone Forms: Work/School Release
[2023-06-29] MEDS: Diphth,Pertus(ACell),Tet Adult 0.5 ML SYRINGE IM (03:26)
[2023-06-29 03:31] VITALS: BP 162/109; PULSE 70; RESP 16; O2SAT 96
--- NOTE | 2023-06-29 03:32 | PC.NURSE ---
Pt hypertensive, reports not taking BP meds today.
== END 2023-06-29 03:37 | disposition home or self-care (01) ==
PROVIDERS: Emergency Provider Emergency Medicine
DX: S00.91XA Abrasion of unspecified part of head, initial encounter (principal); S09.90XA Unspecified injury of head, initial encounter; S40.211A Abrasion of right shoulder, initial encounter; I48.91 Unspecified atrial fibrillation; M54.2 Cervicalgia; R51.9 Headache, unspecified; W01.10XA Fall on same level from slipping, tripping and stumbling with subsequent striking against unspecified object, initial encounter; Y93.9 Activity, unspecified; Y92.9 Unspecified place or not applicable; Y99.9 Unspecified external cause status; Z79.01 Long term (current) use of anticoagulants; Z79.899 Other long term (current) drug therapy; Z23 Encounter for immunization
CPT/HCPCS: 70450; 72125; 90471; 90715; 99284